=== PATIENT | female | born 1980 | race Caucasian/White ===

== ENCOUNTER → 2018-05-21 14:48 | Outpatient (CLI) | payer BC, SELFPAY ==
[2018-05-21 15:16] LABS: Adenovirus F 40/41, stool Not Detected (NotDetected); Astrovirus Not Detected (NotDetected); Campylobacter Not Detected (NotDetected); Clostridium Difficile A/B, PCR Not Detected (NotDetected); Cryptosporidium Not Detected (NotDetected); Cyclospora Cayetanesis Not Detected (NotDetected); Entamoeba histolytica Not Detected (NotDetected); Enteroaggregative E coli Not Detected (NotDetected); Enteropathogenic E coli Not Detected (NotDetected); Enterotoxigenic E coli Not Detected (NotDetected); Giardia lamblia Not Detected (NotDetected); Norovirus Not Detected (NotDetected); Plesimonas Shigalloides, PCR Not Detected (NotDetected); Rotavirus A Not Detected (NotDetected); Salmonella, PCR Not Detected (NotDetected); Sapovirus Not Detected (NotDetected); Shiga-like toxin E coli Not Detected (NotDetected); Shigella Enterovasive E coli Not Detected (NotDetected); Vibrio Cholerae Not Detected (NotDetected); Vibrio, PCR Not Detected (NotDetected); Yersinia Entercolitica, PCR Not Detected (NotDetected)
== END ==
PROVIDERS: Visit Provider Nurse Practitioner Family
DX: R19.7 Diarrhea, unspecified (principal)
CPT/HCPCS: 87507

== ENCOUNTER → 2019-03-16 16:47 | Outpatient (CLI) | payer BC, SELFPAY ==
--- NOTE | 2019-03-16 16:54 | MM_ITS ---
MM Dig screening mamm BI w/CAD ORDERING PHYSICIAN : Soraya Hyde APRN PATIENT AGE: 38 years GENDER: Female COMPARISON: 03/18/2015 bilateral screening mammogram Only 1 previous mammogram available but very helpful and supportive stability INDICATION: Routine: SCREENING no hormones.Murina . No new complaints. Noncontributory family history. TECHNIQUE: Standard CC and MLO images were obtained. R2 CAD reviewed. Axillary cc views both breast included FINDINGS: Moderate low-density breast bilaterally.. Moderate fibroglandular elements throughout the central breast extending towards upper-outer quadrant Overall stable appearing architecture with no new dominant mass nor suspicious calcifications. No significant new findings. . Bilateral follow-up in one year adequate IMPRESSION: ......... Stable mammogram No new findings of significant concern. Moderate density breast. Bilateral follow-up one year recommended. BI-RADS Category: 1 Negative RECOMMENDED FOLLOW-UP: 1YR 1 YEAR FOLLOW-UP (A letter has been sent to the patient regarding results of the study.)
== END ==
PROVIDERS: PCP Nurse Practitioner Family; Visit Provider Nurse Practitioner Family
DX: Z12.31 Encounter for screening mammogram for malignant neoplasm of breast (principal)
CPT/HCPCS: 77067

== ENCOUNTER → 2019-05-01 10:05 | Outpatient (CLI) | payer BC, SELFPAY ==
[2019-05-03 07:46] LABS: Deamidated Gliadin Abs, IgA 4 units (0-19); Deamidated Gliadin Abs, IgG 3 units (0-19); Endomysial IgA Antibody Negative (Negative); Tissue Transglutaminase IgA Ab <2 U/mL (0-3); Tissue Transglutaminase IgG Ab <2 U/mL (0-5)
[2019-05-03 07:48] LABS: Reticulin IgA Antibody Negative titer (Neg:<1:2.5)
== END ==
PROVIDERS: PCP Nurse Practitioner Family; Visit Provider Internal Medicine Gastroenterology
DX: K59.9 Functional intestinal disorder, unspecified (principal); K30 Functional dyspepsia; R10.13 Epigastric pain
CPT/HCPCS: 36415; 83516; 86255; 86256

== ENCOUNTER → 2019-11-17 09:57 | Outpatient (CLI) | payer BC, SELFPAY ==
--- NOTE | 2019-11-17 10:07 | XR_ITS ---
PROCEDURE: XR CHEST 2V Patient Age:38Y CLINICAL HISTORY: COUGH cough several weeks COMPARISON: CXR CHEST(2 VIEWS-NOT PORTABLE) from 10/26/2016 CXR CHEST(2 VIEWS-NOT PORTABLE) from 03/07/2017 FINDINGS: PA and lateral chest performed. Lungs clear with nothing definitely acute. The cardiomediastinal silhouette satisfactory with heart upper normal in size. Pulmonary vascularity normal. Subtle accentuation of markings infrahilar region lateral view similar to previous studies and reflecting baseline for this patient. The lungs are clear without infiltrates, suspicious nodules, or pleural effusions. No acute bony abnormalities. IMPRESSION: No acute findings. . Stable chest with nothing definitely acute Dictated by: Gareth Back MD 11/17/2019 20:53 Electronically signed by Gareth Back MD in [place] 11/17/2019 20:53
[2019-11-17 10:43] LABS: Basophils # 0.1 K/mm3 (0-0.2); Basophils % 0.7 % (0.1-2.0); Eosinophils # 0.2 K/mm3 (0.0-0.4); Eosinophils % 2.3 % (0.1-12.0); Hematocrit 41.2 % (37.0-47.0); Hemoglobin 13.4 g/dL (12.2-16.2); Lymphocytes % 21.9 % (10-50); Mean Corpuscular HGB Conc 32.5 g/dL (31.8-35.4); Mean Corpuscular Hemoglobin 29.4 pg (27.0-31.2); Mean Corpuscular Volume 90.4 fl (81-99); Monocytes # 0.4 K/mm3 (0.1-1.0); Monocytes % 4.9 % (1.7-9.3); Neutrophils # 6.3 K/mm3 (1.8-7.8); Neutrophils % 70.2 % (37.0-80.0); Platelet Count 357 K/mm3 (142-424); Red Blood Count 4.56 M/mm3 (4.20-5.40); Red Cell Distribution Width 13.9 % (11.5-17.5); White Blood Count 8.9 K/mm3 (4.8-10.8)
[2019-11-17 11:57] LABS: Alanine Aminotransferase 30 U/L (12-78); Albumin Level 3.7 gm/dL (3.4-5.0); Albumin/Globulin Ratio 1.2 (1.1-1.8); Alkaline Phosphatase 65 U/L (46-116); Anion Gap 16.3 mEq/L (5-15); Aspartate Amino Transferase 9 U/L (15-37); Bilirubin,Total 0.3 mg/dL (0.2-1.0); Blood Urea Nitrogen 11 mg/dL (7-18); Calcium 8.6 mg/dL (8.5-10.1); Carbon Dioxide 25 mmol/L (21.0-32.0); Chloride 102 mmol/L (98-107); Chol/HDL Ratio 5.9 (1-3.5); Cholesterol 226 mg/dL (140-200); Creatinine,Serum 0.72 mg/dL (0.55-1.02); Estimated Glomerular Filt Rate 90 ml/min (>60); GFR (African American) 109 ML/MIN (>60); Globulin 3.1 gm/dl (1.3-3.2); Glucose 141 mg/dL (74-106); HDL Cholesterol 38 mg/dL (29-89); LDL Cholesterol 144 mg/dL (0-130); Potassium 4.3 mmoL/L (3.5-5.1); Sodium 139 mmol/L (136-145); Total Protein,Serum 6.8 gm/dL (6.4-8.2); Triglycerides 219 mg/dL (30-200); VLDL Cholesterol 44 mg/dL (0-40)
[2019-11-17 12:42] LABS: Hemoglobin A1C 6.4 % (0.0-7.0)
[2019-11-18 09:45] LABS: Vitamin B12 587 pg/mL (232-1245)
[2019-11-20 16:11] LABS: EBV Ab VCA, IgM <36.0 U/mL (0.0-35.9); EBV Nuclear Antigen Ab, IgG 78.9 U/mL (0.0-17.9); Epstein-Barr Virus Early Ag Ab <9.0 U/mL (0.0-8.9)
== END ==
PROVIDERS: PCP Nurse Practitioner Family; Visit Provider Nurse Practitioner Family
DX: R05 Cough (principal); R53.83 Other fatigue; E11.9 Type 2 diabetes mellitus without complications; E55.9 Vitamin D deficiency, unspecified
CPT/HCPCS: 36415; 71046; 80053; 80061; 82607; 82652; 83036; 84443; 85025; 86663; 86664; 86665

== ENCOUNTER → 2020-01-15 15:11 | Outpatient (CLI) | payer BC, SELFPAY ==
--- NOTE | 2020-01-15 15:14 | CA_ITS ---
APPROVED REPORT EXAM: Comprehensive 2D, Doppler, and color-flow Echocardiogram [employer] Supervisor: Selena Hook RDCS Ht: 5 ft 3 in Wt: 212lbs BSA: 1.98 BP: 110/70 mmHg Indications: MVP,PALPS 2D Dimensions LVOT 1.85 cm (M/F) 1.5-2.5 M-Mode Dimensions RVDd 2.64 cm (0.9-2.6) LVDd 5.36 cm (3.5-5.7) LVDs 3.47 cm (3.5-5.7) IVSd 0.86 cm (0.6-1.1) PWd 0.82 cm (0.6-1.1) EF (Teich) 64.10% FS 35.30% EDV (Teich) 138.90 mL ESV (Teich) 49.80 mL LV Diastology E/A Ratio 1.03 Aortic Valve LVOT Max 141.00 (70-110 cm/s) LVOT VTI 28.02 cm Mitral Valve MV A Velocity 83.00 (40-130 cm/s) Left Ventricle Left atrium is normal size, left ventricle is normal size, there is no concentric left ventricular hypertrophy, visually estimated ejection fraction 55% with no regional wall motion abnormality. Diastolic parameters are within normal range. Right Ventricle Right atrium and right ventricular normal size and contractility. Aortic Valve Aortic valve is grossly normal, there is no aortic stenosis or aortic insufficiency. Mitral Valve Mitral valve is grossly normal, there is trace mitral regurgitation. Tricuspid Valve Tricuspid valve is grossly normal, there is trace tricuspid regurgitation, tricuspid regurgitation jet velocity is inadequate for calculation of the right ventricular systolic pressure. Pulmonic Valve Pulmonic valve is poorly visualized. Great Vessels Aortic root is normal size. Pericardium No significant pericardial effusion noted. Conclusion 1. Normal left ventricular size, preserved left ventricular systolic function, visually estimated ejection fraction 55% with no regional wall motion abnormality, diastolic parameters are within normal range. 2. Trace mitral and tricuspid regurgitation. 3. No obvious echocardiographic evidence of mitral valve prolapse 4. No significant pericardial effusion noted. Electronically signed by : Darren Walker, 01/16/2020 05:56:32
== END ==
PROVIDERS: PCP Nurse Practitioner Family; Visit Provider Nurse Practitioner Family
DX: I34.1 Nonrheumatic mitral (valve) prolapse (principal)
CPT/HCPCS: 93306

== ENCOUNTER → 2020-06-06 11:56 | Outpatient (CLI) | payer BC, SELFPAY ==
--- NOTE | 2020-06-06 12:01 | XR_ITS ---
PROCEDURE: XR CHEST 2V CLINICAL HISTORY: COUGH COMPARISON: CXR CHEST(2 VIEWS-NOT PORTABLE) from 10/26/2016 CXR CHEST(2 VIEWS-NOT PORTABLE) from 03/07/2017 XR CHEST 2V from 11/17/2019 FINDINGS: The cardiomediastinal silhouette and pulmonary vascularity are within normal limits. The lungs are clear without infiltrates, suspicious nodules, or pleural effusions. No acute bony abnormalities. IMPRESSION: No acute findings. Dictated by: Dustin Greenberg MD 06/06/2020 14:11 Electronically signed by Dustin Greenberg MD in [place] 06/06/2020 14:11
[2020-06-06 12:45] LABS: Basophils % 0.3 % (0.1-2.0); Eosinophils # 0.2 K/mm3 (0.0-0.4); Eosinophils % 1.3 % (0.1-12.0); Hematocrit 42.2 % (37.0-47.0); Lymphocytes # 3.3 K/mm3 (0.7-4.5); Lymphocytes % 18.6 % (10-50); Mean Corpuscular HGB Conc 33.3 g/dL (31.8-35.4); Mean Corpuscular Hemoglobin 30.2 pg (27.0-31.2); Mean Corpuscular Volume 90.5 fl (81-99); Mean Platelet Volume 7.5 fl (7.4-10.4); Monocytes # 0.7 K/mm3 (0.1-1.0); Monocytes % 4.2 % (1.7-9.3); Neutrophils # 13.3 K/mm3 (1.8-7.8); Neutrophils % 75.6 % (37.0-80.0); Platelet Count 396 K/mm3 (142-424); Red Blood Count 4.66 M/mm3 (4.20-5.40); Red Cell Distribution Width 14.4 % (11.5-17.5); White Blood Count 17.6 K/mm3 (4.8-10.8)
[2020-06-06 12:48] LABS: MANUAL DIFFERENTIAL MANUAL DIFFERENTIAL (MANUAL DIFF)
[2020-06-06 14:21] LABS: Lymphocytes % 16 % (10-50); Monocytes % 4 % (2-9); Neutrophils % 80 % (42-76); Platelet Estimate Normal; RBC Morphology Normal; Total Cells Counted 100
[2020-06-06 14:46] LABS: Alanine Aminotransferase 37 U/L (12-78); Albumin Level 4.6 g/dl (3.5-5.0); Albumin/Globulin Ratio 1.6 (1.1-1.8); Alkaline Phosphatase 85 U/L (38-126); Anion Gap 17.5 mEq/L (5-15); Aspartate Amino Transferase 24 U/L (14-36); Bilirubin,Total 0.6 mg/dl (0.2-1.3); Blood Urea Nitrogen 13 mg/dl (7-17); Carbon Dioxide 28 mmol/L (22.0-30.0); Chloride 97 mmol/L (98-107); Estimated Glomerular Filt Rate 110 ml/min (>60); GFR (African American) 133 ML/MIN (>60); Globulin 2.9 g/dL (1.3-3.2); Glucose 121 mg/dl (74-100); Potassium 4.5 mmoL/L (3.5-5.1); Sodium 138 mmol/L (136-145); Total Protein,Serum 7.5 g/dl (6.3-8.2)
[2020-06-06 15:16] LABS: Thyroid Stimulating Hormone 2.87 uIU/mL (0.465-4.68)
== END ==
PROVIDERS: PCP Internal Medicine Adolescent Medicine; Visit Provider Internal Medicine Adolescent Medicine
DX: R05 Cough (principal); R53.83 Other fatigue
CPT/HCPCS: 36415; 71046; 80053; 84443; 85007; 85025

== ENCOUNTER → 2020-06-10 13:22 | Outpatient (CLI) | payer BC, SELFPAY ==
--- NOTE | 2020-06-10 13:30 | MM_ITS ---
PROCEDURE: MM DIG SCREENING MAMM BI W/CAD Digital Breast Tomosynthesis Included CLINICAL INDICATION: SCREENING There is no personal or family history of breast cancer COMPARISON: DMSB DIG MAMM-SCREEN THEO from 03/18/2015 DIG MAMM-SCREEN THEO from 03/16/2019 TECHNIQUE: Standard CC and MLO images and 3D Tomosynthesis was obtained. R2 CAD reviewed. FINDINGS: [id number] fibroglandular densities are seen in the central portions of both breasts. The findings are bilateral and symmetrical. There is no suspicious lesion in either breast and no suspicious microcalcifications. IMPRESSION: Fibrofatty parenchyma with no suspicious lesions seen BI-RAD Category: 1 Negative FOLLOW-UP: 1YR 1 Year Follow-up (A letter has been sent to the patient regarding results of the study.) Dictated by: Dr. Silverio Dixon MD 06/12/2020 15:[address] Silverio Dixon MD in [place] 06/12/2020 15:33
== END ==
PROVIDERS: PCP Internal Medicine Adolescent Medicine; Visit Provider Nurse Practitioner Family
DX: Z12.31 Encounter for screening mammogram for malignant neoplasm of breast (principal)
CPT/HCPCS: 77063; 77067

== ENCOUNTER → 2020-07-04 09:14 | Outpatient (CLI) | payer BC, SELFPAY ==
--- NOTE | 2020-07-04 09:20 | CA_ITS ---
APPROVED REPORT EXAM: Comprehensive 2D, Doppler, and color-flow Echocardiogram [employer] Co[employer] Machine Tender: Mera Allan RVT Ht: 5 ft 3 in Wt: 210lbs BSA: 1.97 BP: 125/65 mmHg Indications: SOA,POST COVID,MALAGON,HX MVP 2D Dimensions LVOT 1.95 cm (M/F) 1.5-2.5 M-Mode Dimensions RVDd 2.38 cm (0.9-2.6) LVDd 4.74 cm (3.5-5.7) LVDs 3.13 cm (3.5-5.7) IVSd 0.72 cm (0.6-1.1) PWd 1.08 cm (0.6-1.1) EF (Teich) 62.80% FS 34.00% EDV (Teich) 104.40 mL ESV (Teich) 38.80 mL LV Diastology E/A Ratio 1.16 Mitral Valve MV A Velocity 73.00 (40-130 cm/s) Left Ventricle Left atrium is normal size, left ventricle is normal size, there is no concentric left ventricular hypertrophy, ejection fraction 55% with no regional wall motion abnormality. Right Ventricle Right atrium and right ventricular normal size and contractility. Aortic Valve Aortic valve is grossly normal, there is no aortic stenosis or aortic insufficiency. Mitral Valve Mitral valve is normal, there is no mitral valve prolapse, there is trace mitral regurgitation. Tricuspid Valve Tricuspid valve grossly normal, there is trace tricuspid regurgitation. Pulmonic Valve Pulmonic valve is poorly visualized. Great Vessels Aortic root is normal size. Pericardium No significant pericardial effusion noted. Conclusion 1. Normal left ventricular size, preserved left ventricular systolic function, visually estimated ejection fraction 55% with no regional wall motion abnormality, diastolic parameters are within normal range. 2. Trace mitral and tricuspid regurgitation. 3. No significant pericardial effusion noted. Electronically signed by : Darren Walker, 07/04/2020 14:08:27
== END ==
PROVIDERS: PCP Internal Medicine Adolescent Medicine; Visit Provider Internal Medicine Adolescent Medicine
DX: R06.00 Dyspnea, unspecified (principal); I34.1 Nonrheumatic mitral (valve) prolapse; U07.1 COVID-19
CPT/HCPCS: 93306

== ENCOUNTER 2020-08-17 15:05 | Emergency (ER) | payer BC, SELFPAY ==
[2020-08-17 15:06] VITALS: BP 115/88; PULSE 67; RESP 19; TEMP 37; O2SAT 99; BMI 37.2
[2020-08-17 15:22] VITALS: BMI 37.2
--- NOTE | 2020-08-17 15:24 | XR_ITS ---
PROCEDURE: XR HUMERUS RT CLINICAL INDICATION: fall COMPARISON: No exams were available for comparison FINDINGS: The vertical fracture of the humeral head is again noted. Otherwise the humeral shaft is intact and the supracondylar humerus appears normal. IMPRESSION: Fracture of the humeral head otherwise the humeral shaft is intact Dictated by: Dr. Silverio Dixon MD 08/17/2020 16:20 Dr. Silverio Dixon MD in [place] 08/17/2020 16:20
--- NOTE | 2020-08-17 15:24 | XR_ITS ---
PROCEDURE: XR SHOULDER RT MIN 2V CLINICAL INDICATION: fall While walking COMPARISON: No exams were available for comparison FINDINGS: There is a vertical fracture through the lateral humeral head involving the greater tuberosity without significant displacement. The humeral head remains within the glenoid. The clavicle is intact and the AC joint appears normal. IMPRESSION: Vertical for fracture humeral head Dictated by: Dr. Silverio Dixon MD 08/17/2020 16:19 Dr. Silverio Dixon MD in [place] 08/17/2020 16:19
--- NOTE | 2020-08-17 15:30 | HMH.EDFALL ---
ED Disposition Clinical Impression: Closed fracture of proximal end of humerus Qualifiers: Encounter type: initial encounter Fracture morphology: other fracture Fracture alignment: displaced Laterality: right Qualified Code(s): S42.291A - Other displaced fracture of upper end of right humerus, initial encounter for closed fracture Disposition: Home, Self-Care Condition on Discharge: Fair Prescriptions: Hydrocodone/Acetaminophen [Hydrocodone-Acetamin 5-325 mg] 1 each PO Q6HP PRN #16 tab PRN Reason: pain from fracture Prescription Printed Cyclobenzaprine HCl [Cyclobenzaprine 5mg Tab] 5 mg PO Q8HP PRN #30 tab PRN Reason: pain/spasm Transmission Status: Received by [facility] Ketorolac Tromethamine [Toradol 10mg tablet] 10 mg PO Q6H 5 Days #20 tab Transmission Status: Received by [facility] Referrals: Silas Shaffer MD [Primary Care Provider] - Kevin Linton MD [Staff Physician] - - Critical Care Critical Care Time: No Attestation: On 08/17/20, the high probability of a clinically significant, sudden or life threatening deterioration of the following system(s) required my full and direct attention, intervention and personal management. The time I documented below is in addition to time spent performing reported procedures but includes the following listed in this critical care notation. Medical Decision Making - Medical Records Medical records reviewed: Yes: I reviewed the patient's medical records. - Bernardo Inquiry Pt receiving controlled substance: Yes Bernardo was queried for this patient: Yes Reference #:: [id number] Risks and benefits of using a controlled substance: were discussed with pt by me Vital Signs: 08/17/20 15:06 Temperature 98.6 F Temperature Source Oral Pulse Rate [Left Radial] 67 Respiratory Rate 19 Blood Pressure [Right Arm] 115/88 Blood Pressure Mean [Right Arm] 97 Blood Pressure Source [Right Arm] Automatic Cuff Blood Pressure Position [Right Arm] Sitting 02 Sat by Pulse Oximetry 99 Oxygen Delivery Method Room Air Orders (Tests/Meds): ED MEDICATIONS Discontinued Medications Generic Name Dose Route Start Last Admin Trade Name Freq PRN Reason Stop Dose Admin Ketorolac Tromethamine 60 mg 08/17/20 15:30 Ketorolac 60mg/2ml Vial IM 08/17/20 15:31 ONCE ONE Orphenadrine Citrate 60 mg 08/17/20 15:30 Orphenadrine Citrate 60mg/2ml Vial IM 08/17/20 15:31 ONCE ONE Promethazine HCl 25 mg 08/17/20 15:30 Promethazine Hcl 25mg/Ml 1ml Vial IM 08/17/20 15:31 ONCE ONE Sodium Chloride 25 ml 08/17/20 15:30 Sodium Chloride 0.9% 25ml Bag IV 08/17/20 15:31 ONCE ONE ORDERS Category Date Time Status Humerus XR right [XR humerus RT] Stat Exams 08/17/20 15:24 Taken XR shoulder RT min 2V Stat Exams 08/17/20 15:24 Taken - Radiology Data #1 Image(s): Shoulder Image Reviewed: Yes I reviewed the patient's radiology results proximal R.humerous fx Fall HPI - General Chief Complaint: Fall Stated Complaint: fell 1004 @ 1400 injury R shoulder Time Seen by Provider: 08/17/20 15:25 Mode of Arrival: Ambulatory Source of Information: Patient Limitations: No Limitations Description of Symptoms (Recalled from ER Triage Doc. by RN): c/o right shoulder pain after falling when some cows chased her. Denies any LOC or any other injuries at this time. - History of Present Illness HPI Narrative: This is a 39-year-old female that presents with acute right shoulder pain after sustaining fall. Patient [place] herd of cattle started to run toward her she began to run and had a mechanical fall and fell on the right shoulder. Patient reports sharp constant right shoulder pain to the anterior portion of the shoulder worse with movement. Pain rated at 7 out of 10 in intensity and is constant. No other injuries no other complaints. - Related Data Home Medications Medication Ins
--- NOTE | 2020-08-17 15:39 | PC.NURSE ---
Ortho paged at this time.
--- NOTE | 2020-08-17 15:41 | PC.NURSE ---
Dr Lewis speaking with Dr Linton at this time.
[2020-08-17 16:40] VITALS: BP 142/85; PULSE 80; RESP 17; TEMP 36.8; O2SAT 100
== END 2020-08-17 16:40 | disposition home or self-care (01) ==
PROVIDERS: Emergency Provider Emergency Medicine; PCP Internal Medicine Adolescent Medicine
DX: S42.294A Other nondisplaced fracture of upper end of right humerus, initial encounter for closed fracture (principal); W01.0XXA Fall on same level from slipping, tripping and stumbling without subsequent striking against object, initial encounter; Y92.73 Farm field as the place of occurrence of the external cause; E11.9 Type 2 diabetes mellitus without complications; I34.1 Nonrheumatic mitral (valve) prolapse; F33.1 Major depressive disorder, recurrent, moderate; Z79.899 Other long term (current) drug therapy
CPT/HCPCS: 73030; 73060; 96372; 99283

== ENCOUNTER → 2020-08-18 11:21 | Outpatient (CLI) | payer BC, SELFPAY ==
--- NOTE | 2020-08-18 11:32 | CT_ITS ---
PROCEDURE: CT SHOULDER RT WO CON CLINICAL HISTORY: proximal end of humerus fx Follow-up fracture COMPARISON: CR XR SHOULDER RT MIN 2V from 08/17/2020 TECHNIQUE: Axial images obtained with sagittal and coronal reformats. All CT scans at the facility use one or more dose reduction, viz: automated exposure control, ma/kV adjustment per patient size (including targeted exams where dose is matched to indication, i.e. head), or iterative reconstruction technique. FINDINGS: The AC joint appears intact. There is a comminuted only minimally displaced fracture involving the proximal humerus beginning at the base the greater tuberosity and extending distally and longitudinal E. The fracture does not extend transversely through the humeral neck. There is only minimal dorsal displacement of the fracture fragment by approximately 4 mm. No intra-articular extension. No other significant anomalies. IMPRESSION: Comminuted minimally displaced fracture involves the greater tuberosity of the proximal humerus as described above. Dictated by: Dustin Greenberg MD 08/18/2020 14:15 Dustin Greenberg MD in [place] 08/18/2020 14:15
== END ==
PROVIDERS: PCP Internal Medicine Adolescent Medicine; Visit Provider Orthopaedic Surgery
DX: S42.201A Unspecified fracture of upper end of right humerus, initial encounter for closed fracture (principal)
CPT/HCPCS: 73200

== ENCOUNTER 2020-11-20 15:30 | Outpatient (RCR) | payer BC, SELFPAY | END 2020-12-16 10:28 | disposition home or self-care (01) | LOC: OT 15:30 | PROVIDERS: PCP Internal Medicine Adolescent Medicine; Visit Provider Orthopaedic Surgery | DX: S42.201A Unspecified fracture of upper end of right humerus, initial encounter for closed fracture (principal) | CPT/HCPCS: 97014; 97110; 97164; 97165; 97530; G0283 ==

== ENCOUNTER → 2021-03-30 18:12 | Outpatient (CLI) | payer BC, SELFPAY ==
[2021-03-30 18:48] LABS: Hemoglobin A1C 6.1 % (4.0-6.0)
[2021-03-30 18:54] LABS: Chloride 99 mmol/L (98-107)
[2021-03-30 18:55] LABS: Potassium 4.6 mmoL/L (3.5-5.1); Sodium 138 mmol/L (136-145)
[2021-03-30 18:57] LABS: Alanine Aminotransferase 24 U/L (12-78); Albumin Level 4.9 g/dl (3.5-5.0); Alkaline Phosphatase 75 U/L (38-126); Anion Gap 16.6 mEq/L (5-15); Aspartate Amino Transferase 28 U/L (14-36); Bilirubin,Total 0.6 mg/dl (0.2-1.3); Blood Urea Nitrogen 15 mg/dl (7-17); Carbon Dioxide 27 mmol/L (22.0-30.0); Estimated Glomerular Filt Rate 110 ml/min (>60); GFR (African American) 133 ML/MIN (>60); Globulin 2.4 g/dL (1.3-3.2); Total Protein,Serum 7.3 g/dl (6.3-8.2)
[2021-03-30 18:58] LABS: Calcium 9.8 mg/dl (8.4-10.2); Chol/HDL Ratio 2.7 (1-3.5); Cholesterol 139 mg/dl (140-200); Glucose 110 mg/dl (74-100); HDL Cholesterol 52 mg/dl (40-60); Triglycerides 142 mg/dl (30-150); VLDL Cholesterol 28 mg/dL (0-40)
[2021-03-30 19:09] LABS: Direct LDL Cholesterol 58.02 mg/dL (100-129)
== END ==
PROVIDERS: Visit Provider Internal Medicine Adolescent Medicine
DX: E78.5 Hyperlipidemia, unspecified (principal); E11.9 Type 2 diabetes mellitus without complications; Z79.84 Long term (current) use of oral hypoglycemic drugs
CPT/HCPCS: 80053; 80061; 83036

== ENCOUNTER → 2021-07-01 07:48 | Outpatient (CLI) | payer BC, SELFPAY ==
[2021-07-01 14:04] LABS: Chloride 105 mmol/L (98-107); Sodium 139 mmol/L (136-145)
[2021-07-01 14:05] LABS: Potassium 4.7 mmoL/L (3.5-5.1)
[2021-07-01 14:07] LABS: Alanine Aminotransferase 27 U/L (12-78); Albumin Level 4.5 g/dl (3.5-5.0); Albumin/Globulin Ratio 1.8 (1.1-1.8); Alkaline Phosphatase 66 U/L (38-126); Anion Gap 13.7 mEq/L (5-15); Aspartate Amino Transferase 24 U/L (14-36); Bilirubin,Total 0.4 mg/dl (0.2-1.3); Blood Urea Nitrogen 14 mg/dl (7-17); Carbon Dioxide 25 mmol/L (22.0-30.0); Cholesterol 177 mg/dl (140-200); Estimated Glomerular Filt Rate 110 ml/min (>60); GFR (African American) 133 ML/MIN (>60); Globulin 2.5 g/dL (1.3-3.2); Triglycerides 194 mg/dl (30-150); VLDL Cholesterol 39 mg/dL (0-40)
[2021-07-01 14:08] LABS: Calcium 9.2 mg/dl (8.4-10.2); Chol/HDL Ratio 4.5 (1-3.5); Glucose 116 mg/dl (74-100); HDL Cholesterol 39 mg/dl (40-60); Magnesium 2.2 mg/dl (1.6-2.3)
[2021-07-01 14:20] LABS: Direct LDL Cholesterol 91.12 mg/dL (100-129)
[2021-07-01 14:24] LABS: Triiodothryronine (T3) Uptake 29 % (23.5-40.5)
[2021-07-01 14:25] LABS: Free Thyroxine Index 2.3 ug/dL (5.93-13.13)
[2021-07-01 14:44] LABS: Ferritin 26.7 ng/ml (6.24-137)
[2021-07-01 14:52] LABS: Basophils # 0.1 K/mm3 (0-0.2); Basophils % 1.1 % (0.1-2.0); Eosinophils # 0.2 K/mm3 (0.0-0.4); Eosinophils % 2.2 % (0.1-12.0); Hematocrit 42.3 % (37.0-47.0); Hemoglobin 13.9 g/dL (12.2-16.2); Lymphocytes # 1.7 K/mm3 (0.7-4.5); Lymphocytes % 21.3 % (10-50); Mean Corpuscular Hemoglobin 28.9 pg (27.0-31.2); Mean Corpuscular Volume 87.5 fl (81-99); Mean Platelet Volume 8.6 fl (7.4-10.4); Monocytes # 0.5 K/mm3 (0.1-1.0); Neutrophils # 5.4 K/mm3 (1.8-7.8); Neutrophils % 69.3 % (37.0-80.0); Platelet Count 329 K/mm3 (142-424); Red Blood Count 4.83 M/mm3 (4.20-5.40); Red Cell Distribution Width 14.3 % (11.5-17.5); White Blood Count 7.8 K/mm3 (4.8-10.8)
[2021-07-01 16:13] LABS: Hemoglobin A1C 5.8 % (4.0-6.0)
[2021-07-02 08:52] LABS: FSH 18.6 mIU/mL (.); LH 7.2 mIU/mL (.)
== END ==
PROVIDERS: Visit Provider Internal Medicine Adolescent Medicine
DX: R00.2 Palpitations (principal); D50.0 Iron deficiency anemia secondary to blood loss (chronic); E11.9 Type 2 diabetes mellitus without complications; N95.1 Menopausal and female climacteric states; Z79.84 Long term (current) use of oral hypoglycemic drugs
CPT/HCPCS: 36415; 80053; 80061; 82728; 83001; 83002; 83036; 83735; 84436; 84443; 84479; 85025

== ENCOUNTER → 2021-12-31 10:48 | Outpatient (CLI) | payer BC, SELFPAY ==
--- NOTE | 2021-12-31 10:54 | CT_ITS ---
FINAL REPORT CLINICAL HISTORY: CYSTITIS WITH HEMATURIA, RIGHT FLANK PAIN, HX OF BLADDER/KIDNEY INFECTION FINDINGS: Axial CT images of the abdomen and pelvis were obtained without intravenous contrast. Coronal reformatted images were also obtained.This study was performed with techniques to keep radiation doses as low as reasonably achievable (ALARA). Individualized dose reduction techniques using automated exposure control or adjustment of mA and/or kV according to the patient's size were employed. Abdomen: The lung bases are clear. There is no evidence of renal stone or hydronephrosis.The liver, spleen and pancreas have an unremarkable, unenhanced appearance. No mass or adenopathy is seen. No inflammatory process is identified. Pelvis: Images of the pelvis reveal no evidence of ureteral dilation or ureteral stone.No mass or abnormal fluid collection is identified. There is an IUD in the uterus. The appendix is normal. IMPRESSION: No renal or ureteral stone, or hydronephrosis. No mass or inflammatory process. Reviewed, Interpreted and Dictated by Alcides Montanez III, MD Transcribed by Rafaela Higginbotham Authenticated by Alcides Montanez III, MD on 12/31/2021 12:52:15 PM [facility]
== END ==
PROVIDERS: PCP Internal Medicine Adolescent Medicine; Visit Provider Internal Medicine Adolescent Medicine
DX: N30.91 Cystitis, unspecified with hematuria (principal); R31.9 Hematuria, unspecified
CPT/HCPCS: 74176

== ENCOUNTER → 2023-02-18 09:49 | Outpatient (CLI) | payer BC, SELFPAY ==
--- NOTE | 2023-02-18 09:49 | MM_ITS ---
PROCEDURE INFORMATION: Exam: MG Bilateral Screening 3D Mammography Exam date and time: 02/18/2023 9:44 AM Age: 42 years old Clinical indication: Screening. No family history of breast cancer. TECHNIQUE: Imaging protocol: Bilateral Screening tomosynthesis and 2D mammography including computer-aided detection (CAD) when performed. COMPARISON: 1. MG MM DIG SCREENING MAMM BI W/CAD 06/10/2020 1:32 PM 2. MG DIG MAMM-SCREEN THEO 03/16/2019 5:02 PM 3. MG DMSB DIG MAMM-SCREEN THEO 03/18/2015 10:31 AM FINDINGS: MAMMOGRAPHY: Breast composition: There are scattered areas of fibroglandular density. Mass: None. Architectural distortion: None. Calcifications: No suspicious calcifications. Asymmetric density: None. Skin thickening: None. Axillary adenopathy: None. IMPRESSION: No mammographic evidence of malignancy. Annual screening is recommended unless otherwise clinically indicated. ASSESSMENT: BI-RADS Category 1: Negative
== END ==
PROVIDERS: PCP Family Medicine; Visit Provider Obstetrics & Gynecology
DX: Z12.31 Encounter for screening mammogram for malignant neoplasm of breast (principal)
CPT/HCPCS: 77063; 77067

== ENCOUNTER → 2023-06-14 16:48 | Outpatient (CLI) | payer BC, SELFPAY ==
[2023-06-14 16:47] LABS: Basophils % 0.5 % (0.1-2.0); Eosinophils # 0.2 K/mm3 (0.0-0.4); Eosinophils % 2.2 % (0.1-12.0); Hematocrit 43.3 % (37.0-47.0); Hemoglobin 13.7 g/dL (12.2-16.2); Lymphocytes # 1.6 K/mm3 (0.7-4.5); Lymphocytes % 19.3 % (10-50); Mean Corpuscular HGB Conc 31.6 g/dL (31.8-35.4); Mean Corpuscular Hemoglobin 28.8 pg (27.0-31.2); Mean Corpuscular Volume 91.4 fl (81-99); Mean Platelet Volume 8.9 fl (7.4-10.4); Monocytes # 0.4 K/mm3 (0.1-1.0); Monocytes % 4.9 % (1.7-9.3); Neutrophils # 5.9 K/mm3 (1.8-7.8); Neutrophils % 73.1 % (37.0-80.0); Platelet Count 347 K/mm3 (142-424); Red Blood Count 4.74 M/mm3 (4.20-5.40); Red Cell Distribution Width 13.9 % (11.5-17.5); White Blood Count 8.1 K/mm3 (4.8-10.8)
[2023-06-14 16:52] LABS: Alanine Aminotransferase 50 U/L (12-78); Albumin Level 4.9 g/dl (3.5-5.0); Albumin/Globulin Ratio 1.9 (1.1-1.8); Alkaline Phosphatase 75 U/L (38-126); Anion Gap 14.9 mEq/L (5-15); Aspartate Amino Transferase 40 U/L (14-36); Bilirubin,Total 0.7 mg/dl (0.2-1.3); Blood Urea Nitrogen 9 mg/dl (7-17); Carbon Dioxide 27 mmol/L (22.0-30.0); Chloride 101 mmol/L (98-107); Chol/HDL Ratio 2.8 (1-3.5); Cholesterol 108 mg/dl (140-200); Estimated Glomerular Filt Rate 109 ml/min (>60); GFR (African American) 131 ML/MIN (>60); Globulin 2.6 g/dL (1.3-3.2); Glucose 161 mg/dl (74-100); HDL Cholesterol 39 mg/dl (40-60); Potassium 4.9 mmoL/L (3.5-5.1); Sodium 138 mmol/L (136-145); Total Protein,Serum 7.5 g/dl (6.3-8.2); Triglycerides 165 mg/dl (30-150); VLDL Cholesterol 33 mg/dL (0-40)
[2023-06-14 17:04] LABS: Direct LDL Cholesterol 42.41 mg/dL (100-129)
[2023-06-14 17:22] LABS: Thyroid Stimulating Hormone 1.79 uIU/mL (0.465-4.68)
[2023-06-14 18:18] LABS: Hemoglobin A1C 7.2 % (4.0-6.0)
[2023-06-14 18:43] LABS: Creatinine,Urine Random 80 mg/dL (Not Estab.)
[2023-06-14 19:30] LABS: Microalbumin < 6.000 mg/L (0-16.7)
[2023-06-16 10:54] LABS: LH 1.7 mIU/mL (.)
[2023-06-21 22:30] LABS: Estrogen 217 pg/mL (.)
== END ==
PROVIDERS: PCP Family Medicine; Visit Provider Nurse Practitioner Family
DX: E11.69 Type 2 diabetes mellitus with other specified complication (principal); E78.5 Hyperlipidemia, unspecified; N93.8 Other specified abnormal uterine and vaginal bleeding; Z79.84 Long term (current) use of oral hypoglycemic drugs; Z79.899 Other long term (current) drug therapy
CPT/HCPCS: 80053; 80061; 82043; 82570; 82672; 83001; 83002; 83036; 84443; 85025

== ENCOUNTER → 2023-08-19 08:29 | Outpatient (CLI) | payer BC, SELFPAY | PROVIDERS: PCP Nurse Practitioner Family; Visit Provider Nurse Practitioner Family | DX: R30.0 Dysuria (principal) | CPT/HCPCS: 87086 ==

== ENCOUNTER → 2023-09-23 09:32 | Outpatient (CLI) | payer BC, SELFPAY | PROVIDERS: PCP Nurse Practitioner Family; Visit Provider Nurse Practitioner Family | DX: J02.9 Acute pharyngitis, unspecified (principal); Z87.891 Personal history of nicotine dependence | CPT/HCPCS: 87070 ==

== ENCOUNTER → 2023-10-04 08:19 | Outpatient (CLI) | payer BC, SELFPAY ==
[2023-10-04 16:54] LABS: Basophils # 0.1 K/mm3 (0-0.2); Basophils % 0.6 % (0.1-2.0); Eosinophils # 0.2 K/mm3 (0.0-0.4); Eosinophils % 1.4 % (0.1-12.0); Hematocrit 40.3 % (37.0-47.0); Hemoglobin 13.3 g/dL (12.2-16.2); Lymphocytes # 2.6 K/mm3 (0.7-4.5); Mean Corpuscular HGB Conc 32.9 g/dL (31.8-35.4); Mean Corpuscular Hemoglobin 30.9 pg (27.0-31.2); Monocytes # 0.6 K/mm3 (0.1-1.0); Monocytes % 4.6 % (1.7-9.3); Neutrophils # 9.1 K/mm3 (1.8-7.8); Neutrophils % 72.4 % (37.0-80.0); Platelet Count 345 K/mm3 (142-424); Red Blood Count 4.29 M/mm3 (4.20-5.40); White Blood Count 12.6 K/mm3 (4.8-10.8)
[2023-10-04 18:08] LABS: Hemoglobin A1C 6.9 % (4.0-6.0)
[2023-10-04 18:19] LABS: Alanine Aminotransferase 46 U/L (12-78); Aspartate Amino Transferase 30 U/L (14-36); Blood Urea Nitrogen 11 mg/dl (7-17); Calcium 8.9 mg/dl (8.4-10.2); Carbon Dioxide 24 mmol/L (22.0-30.0); Chloride 98 mmol/L (98-107); Estimated Glomerular Filt Rate 109 ml/min (>60); GFR (African American) 131 ML/MIN (>60); Glucose 125 mg/dl (74-100)
[2023-10-04 18:20] LABS: Albumin Level 4.4 g/dl (3.5-5.0); Albumin/Globulin Ratio 1.7 (1.1-1.8); Alkaline Phosphatase 81 U/L (38-126); Anion Gap 16.5 mEq/L (5-15); Bilirubin,Total 0.5 mg/dl (0.2-1.3); Globulin 2.6 g/dL (1.3-3.2); Potassium 4.5 mmoL/L (3.5-5.1); Sodium 134 mmol/L (136-145)
== END ==
LOC: LAB.DROPOF 10-05 08:19
PROVIDERS: PCP Family Medicine; Visit Provider Nurse Practitioner Family
DX: E78.5 Hyperlipidemia, unspecified (principal); E11.9 Type 2 diabetes mellitus without complications; Z79.84 Long term (current) use of oral hypoglycemic drugs
CPT/HCPCS: 80053; 83036; 85025

== ENCOUNTER 2024-01-27 16:43 | Outpatient (CLI) | payer BC, SELFPAY ==
[2024-01-27 16:58] LABS: Hemoglobin A1C 7.5 % (4.0-6.0)
[2024-01-27 17:30] LABS: Chol/HDL Ratio 3.1 (1-3.5); Cholesterol 109 mg/dl (140-200); HDL Cholesterol 35 mg/dl (40-60); Triglycerides 148 mg/dl (30-150); VLDL Cholesterol 30 mg/dL (0-40)
[2024-01-27 17:42] LABS: Direct LDL Cholesterol 51.45 mg/dL (100-129)
== END 2024-01-27 23:59 ==
LOC: LAB.DROPOF 16:44
PROVIDERS: PCP Nurse Practitioner Family; Visit Provider Nurse Practitioner Family
DX: E11.69 Type 2 diabetes mellitus with other specified complication (principal); E78.5 Hyperlipidemia, unspecified; Z79.84 Long term (current) use of oral hypoglycemic drugs
CPT/HCPCS: 80061; 83036

== ENCOUNTER 2024-01-30 19:19 | Outpatient (CLI) | payer BC, SELFPAY ==
[2024-01-30 16:52] LABS: Basophils # 0.1 K/mm3 (0-0.2); Basophils % 1.2 % (0.1-2.0); Eosinophils # 0.2 K/mm3 (0.0-0.4); Hematocrit 43.6 % (37.0-47.0); Hemoglobin 13.9 g/dL (12.2-16.2); Lymphocytes # 2.4 K/mm3 (0.7-4.5); Lymphocytes % 22.8 % (10-50); Mean Corpuscular HGB Conc 31.9 g/dL (31.8-35.4); Mean Corpuscular Hemoglobin 29.8 pg (27.0-31.2); Mean Corpuscular Volume 93.4 fl (81-99); Mean Platelet Volume 8.2 fl (7.4-10.4); Monocytes # 0.6 K/mm3 (0.1-1.0); Monocytes % 5.3 % (1.7-9.3); Neutrophils # 7.2 K/mm3 (1.8-7.8); Neutrophils % 68.7 % (37.0-80.0); Platelet Count 370 K/mm3 (142-424); Red Blood Count 4.67 M/mm3 (4.20-5.40); Red Cell Distribution Width 13.7 % (11.5-17.5); White Blood Count 10.5 K/mm3 (4.8-10.8)
[2024-01-30 17:19] LABS: Amylase 60 U/L (30-110); Lipase 106 U/L (23-300)
[2024-01-30 17:27] LABS: C-Reactive Protein 1.5 mg/L (0-4)
[2024-01-30 18:29] LABS: Erythrocyte Sedimentation Rate 15 mm/hr (0-20)
== END 2024-01-30 23:59 ==
LOC: LAB.DROPOF 19:20
PROVIDERS: PCP Nurse Practitioner Family; Visit Provider Nurse Practitioner Family
DX: R10.11 Right upper quadrant pain (principal); R39.9 Unspecified symptoms and signs involving the genitourinary system; R07.81 Pleurodynia
CPT/HCPCS: 82150; 83690; 85025; 85651; 86140; 87086

== ENCOUNTER 2024-02-07 09:17 | Outpatient (CLI) | payer BC, SELFPAY ==
--- NOTE | 2024-02-07 09:19 | US_ITS ---
FINAL REPORT TECHNIQUE: Ultrasound images of the abdomen were obtained. CLINICAL HISTORY: RUQ pain FINDINGS: The pancreas is obscured by bowel gas. There is infiltration of the liver present. The gallbladder is small, and contains a trace amount of sludge. The common duct is normal. The right kidney measures 11.8 cm in length and is normal in echogenicity without hydronephrosis. The left kidney measures 10 cm in length and is normal in echogenicity without hydronephrosis. The spleen is unremarkable. The aorta is normal in caliber. The vena cava is unremarkable. IMPRESSION: Fatty infiltration of the liver. Trace sludge is present in the gallbladder. Reviewed, Interpreted and Dictated by Calvin Calvin MD Transcribed by Ling Gallagher Authenticated and [facility]
== END 2024-02-07 23:59 ==
LOC: RAD 09:19
PROVIDERS: PCP Family Medicine; Visit Provider Nurse Practitioner Family
DX: R10.11 Right upper quadrant pain (principal)
CPT/HCPCS: 76700

== ENCOUNTER 2024-02-22 15:11 | Outpatient (CLI) | payer BC, SELFPAY ==
--- NOTE | 2024-02-22 15:11 | MM_ITS ---
PROCEDURE INFORMATION: Exam: MG Bilateral Screening 3D Mammography Exam date and time: 02/22/2024 3:14 PM Age: 43 years old Clinical indication: Screening mammogram TECHNIQUE: Imaging protocol: Bilateral Screening tomosynthesis and 2D mammography including computer-aided detection (CAD) when performed. COMPARISON: 1. MG MM DIG SCREENING MAMM BI W/CAD 02/18/2023 9:44 AM 2. MG MM DIG SCREENING MAMM BI W/CAD 06/10/2020 1:32 PM 3. MG DIG MAMM-SCREEN THEO 03/16/2019 5:02 PM 4. MG DMSB DIG MAMM-SCREEN THEO 03/18/2015 10:31 AM FINDINGS: MAMMOGRAPHY: Breast composition: There are scattered areas of fibroglandular density. Mass: None. Architectural distortion: No new or suspicious architectural distortion. Calcifications: No new or suspicious calcifications are present Asymmetric density: No new or suspicious asymmetric density is present Skin thickening: None. Axillary adenopathy: None. IMPRESSION: No mammographic evidence of malignancy. Recommend annual screening mammography unless otherwise clinically indicated. ASSESSMENT: BI-RADS category 1: Negative.
== END 2024-02-22 23:59 ==
LOC: RAD 15:11
PROVIDERS: PCP Family Medicine; Visit Provider Nurse Practitioner Family
DX: Z12.31 Encounter for screening mammogram for malignant neoplasm of breast (principal)
CPT/HCPCS: 77063; 77067

== ENCOUNTER 2024-10-05 09:39 | Outpatient (CLI) | payer BC, SELFPAY | END 2024-10-05 23:59 | disposition home or self-care (01) | LOC: LAB.DROPOF 10-08 09:40 | PROVIDERS: PCP Family Medicine; Visit Provider Family Medicine | DX: N39.0 Urinary tract infection, site not specified (principal) | CPT/HCPCS: 87086 ==

== ENCOUNTER 2024-10-25 08:55 | Outpatient (CLI) | payer BC, SELFPAY | END 2024-10-25 23:59 | disposition home or self-care (01) | LOC: LAB.DROPOF 10-26 15:10 | PROVIDERS: PCP Family Medicine; Visit Provider Family Medicine | DX: N39.0 Urinary tract infection, site not specified (principal) | CPT/HCPCS: 87086 ==

== ENCOUNTER 2024-11-05 09:57 | Outpatient (CLI) | payer BC, SELFPAY | END 2024-11-05 23:59 | disposition home or self-care (01) | LOC: LAB.DROPOF 11-06 09:57 | PROVIDERS: PCP Nurse Practitioner Family; Visit Provider Nurse Practitioner Family | DX: R32 Unspecified urinary incontinence (principal) | CPT/HCPCS: 87086 ==

== ENCOUNTER 2025-01-22 09:31 | Outpatient (CLI) | payer BC, SELFPAY ==
[2025-01-22 18:00] LABS: Basophils # 0.1 K/mm3 (0-0.2); Basophils % 0.7 % (0.1-2.0); Eosinophils # 0.1 K/mm3 (0.0-0.4); Hematocrit 42.6 % (37.0-47.0); Hemoglobin 13.8 g/dL (12.2-16.2); Lymphocytes # 1.5 K/mm3 (0.7-4.5); Mean Corpuscular HGB Conc 32.4 g/dL (31.8-35.4); Mean Corpuscular Hemoglobin 30.1 pg (27.0-31.2); Mean Platelet Volume 10.5 fl (7.4-10.4); Monocytes # 0.5 K/mm3 (0.1-1.0); Neutrophils # 4.8 K/mm3 (1.8-7.8); Neutrophils % 69.2 % (37.0-80.0); Platelet Count 323 K/mm3 (142-424); Red Blood Count 4.58 M/mm3 (4.20-5.40); Red Cell Distribution Width 13.9 % (11.5-17.5); White Blood Count 6.9 K/mm3 (4.8-10.8)
[2025-01-22 21:14] LABS: Albumin Level 4.9 g/dl (3.5-5.0); Chloride 99 mmol/L (98-107); Potassium 4.6 mmoL/L (3.5-5.1); Sodium 134 mmol/L (136-145)
[2025-01-22 21:16] LABS: Alanine Aminotransferase 38 U/L (12-78); Blood Urea Nitrogen 9 mg/dl (7-17); Estimated Glomerular Filt Rate 133 ml/min (>60); GFR (African American) 161 ML/MIN (>60)
[2025-01-22 21:17] LABS: Albumin/Globulin Ratio 2.1 (1.1-1.8); Alkaline Phosphatase 50 U/L (38-126); Anion Gap 13.6 mEq/L (5-15); Aspartate Amino Transferase 34 U/L (14-36); Bilirubin,Total 0.7 mg/dl (0.2-1.3); Calcium 9.5 mg/dl (8.4-10.2); Carbon Dioxide 26 mmol/L (22.0-30.0); Chol/HDL Ratio 2.8 (1-3.5); Cholesterol 119 mg/dl (140-200); Globulin 2.3 g/dL (1.3-3.2); Glucose 121 mg/dl (74-100); HDL Cholesterol 43 mg/dl (40-60); Total Protein,Serum 7.2 g/dl (6.3-8.2); Triglycerides 175 mg/dl (30-150); VLDL Cholesterol 35 mg/dL (0-40)
[2025-01-22 21:29] LABS: Direct LDL Cholesterol 42.74 mg/dL (100-129)
[2025-01-22 21:58] LABS: HIV Combo NEGATIVE (Negative)
[2025-01-22 22:09] LABS: Hepatitis C Ab Qual. W/ RFX NEGATIVE (Negative)
== END 2025-01-22 23:59 | disposition home or self-care (01) ==
LOC: LAB.DROPOF 01-24 09:11
PROVIDERS: PCP Family Medicine; Visit Provider Family Medicine
DX: Z11.59 Encounter for screening for other viral diseases (principal); E11.69 Type 2 diabetes mellitus with other specified complication; E78.5 Hyperlipidemia, unspecified; Z79.84 Long term (current) use of oral hypoglycemic drugs
CPT/HCPCS: 80053; 80061; 85025; 86803; 87389

== ENCOUNTER 2025-03-01 14:06 | Outpatient (CLI) | payer BC, SELFPAY ==
--- NOTE | 2025-03-01 14:00 | MM_ITS ---
PROCEDURE INFORMATION: Exam: MG Bilateral Screening 3D Mammography Exam date and time: 03/01/2025 2:15 PM Age: 44 years old Clinical indication: Screening. No family history of breast cancer. TECHNIQUE: Imaging protocol: Bilateral Screening tomosynthesis and 2D mammography including computer-aided detection (CAD) when performed. COMPARISON: 1. MG MM DIG SCREENING MAMM BI W/CAD 02/22/2024 3:14 PM 2. MG MM DIG SCREENING MAMM BI W/CAD 02/18/2023 9:44 AM 3. MG MM DIG SCREENING MAMM BI W/CAD 06/10/2020 1:32 PM 4. MG DIG MAMM-SCREEN THEO 03/16/2019 5:02 PM FINDINGS: MAMMOGRAPHY: Breast composition: There are scattered areas of fibroglandular density. Mass: None. Architectural distortion: None. Calcifications: No suspicious calcifications. Asymmetric density: None. Skin thickening: None. Axillary adenopathy: None. IMPRESSION: No mammographic evidence of malignancy. Annual screening is recommended unless otherwise clinically indicated. ASSESSMENT: BI-RADS Category 1: Negative.
--- OUTSIDE RECORDS SUMMARY | 2025-03-01 14:08 | XMS_ITS | Data Portability ---
Author Organization [facility] [place] [facility] Address [address] [facility] [place] [address] Assessment No assessment recorded. Plan of Treatment Reminders Order Date Submit Date Provider Last Modified By Organization Details Last Modified Time Details Appointments [facility] 2024 10:00A M HALEIGH FIGUEROA MD Not available Not available Not available Lab surgical pathology study 2024 025 [facility], [address] [place] [address], [phone], 12/28/2024 11:11:58 Referral None recorded. Procedures None recorded. Surgeries None recorded. Imaging None recorded. Medication Orders metronida zole 0.75 % topical cream 2024 025 [facility], [address] [place], [address], 01/03/2025 15:16:03 Patient TargetsNo targets recorded. Patient InstructionsNo instructions recorded. Reason for Referral None Reported. 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 AJCC: T1, Nx, Mx SOURC E OF SPECI MEN: SKIN, MID APEX SCALP CLINI ROCIO INFOR MATIO N: R/O: BCC Gross Descr iptio n: The speci men consi sted of a singl e escamilla fragm ent which measu red 5 x 5 x 1 mm. All is submi tted in toto in one casse tte. Micro scopi c Descr iptio n: Nests and aggre marquez of immat ure basal oid epith elial cells with perip heral palis ading are prese nt in the dermi s. JEET GUERRA MD Daisy d Out Date: 12/28 11:11 1 Not Available [facility] [address] [place], [address], 12/28/2024 11:11:58 Result Notes None recorded. Procedures Surgical History Date Name Laterality Status Provider Name and Address Organization Details Recorded Time 12/27/2024 Blade Biopsy completed [facility] 12/27/2024 09:06:06 Imaging Results None recorded. Procedure Notes None recorded. Medical Equipment None Reported. Allergies Allergen ID Allergen Name Allergen Category Reaction Reaction Severity Criticality Documentation Date Start Date Code Code System Note Provider Name and Address Organization Details Recorded Time 376122 epinephri ne medicatio n respirato ry distress Not available Not available 10/08/20162011 3992 RxNorm React ion: SHORT NESS OF BREAT H; Comme nt: Creat ed By: Franklin go; Creat ed Date: 10:31 :30 AM; Not Available [facility] 6 03:50:44 355109 Tylenol medicatio n other Not available Not available 10/08/2016201143 3 RxNorm React ion: OTHER ; Comme nt: raise s liver enzym es;Cr eated By: Franklin go; Creat ed Date: 10:31 :56 AM; Not Available [facility] 6 03:50:44 Medications Name Sig Start Date Stop Date Status Note LastModified by Organization Details LastModified Time silver sulfadiazi ne 1 % topical cream active Not Available Not Available Not Available citalopram 40 mg tablet active Not Available Not Available Not Available prednisone 20 mg tablet active Not Available Not Available Not Available sulfametho xazole 800 mg-trimeth oprim 160 mg tablet active Not Available Not Available No t Available methenamin e hippurate 1 gram tablet active Not Available Not Available Not Available amoxicilli n 875 mg tablet active Not Available Not Available Not Available prednisone 50 mg tablet active Not Available Not Available Not Available metronidaz ole 0.75 % topical cream APPLY A THIN LAYER TO THE AFFECTED AREA(S) BY TOPICAL ROUTE 2 TIMES PER DAY IN THE MORNING AND EVENING active Not Available Not Available No t Available ipratropiu m bromide 42 mcg (0.06 %) nasal spray active Not Available Not Available Not Available bromphenir amine-pseu doephedrin e-DM 2 mg-30 mg-10 mg/5 mL oral syrup active Not Available Not Available Not Available metformin ER 500 mg tablet,ext ended release 24 hr active Not Available Not Available Not Available amoxicilli n 875 mg-potassi um clavulanat e 125 mg tablet active Not Available Not Available Not Available Cryselle (28) 0.3 mg-30 mcg tablet Daily active Frequency : daily;Alt Frequency : as direct.;M edication Descripti on: ethinyl estradiol -norgestr el; Dosage:1; Route:ora l; refills:0 ; Quantity: 30 tablet Not Available Not Available Not Available rosuvastat in 20 mg tablet active Not Available Not Available Not Available nitrofuran toin monohydrat e/macrocry stals 100 mg capsule active Not Available Not Available N ot Available Fish Oil Daily active Frequency : daily;Alt Frequency : as direct.;M edication Descripti on: omega-3 polyunsat urated fatty acids; Dosage:1; Route:ora l; refills:0 ; Quantity: 30 capsule Not Available Not Available Not Available ferrous sulfate Daily active Frequency : daily;Alt Frequency : as direct.;M edication Descripti on: ferrous sulfate; Dosage:2; refills:0 ; Quantity: 90 Not Available Not Available Not Available Bystolic 2.5 mg tablet Daily active Frequency : daily;Alt Frequency : as direct.;M edication Descripti on: nebivolol ; Dosage:1/ 2; Route:ora l; refills:0 ; Quantity: 30 tablet Not Available Not Available Not Available nebivolol 5 mg tablet active Not Available Not Available Not Available azelastine 137 mcg-flutic asone 50 mcg/spray nasal spray active Not Available Not Available Not Available Farxiga 5 mg tablet active Not Available Not Available No t Available Jardiance 10 mg tablet active Not Available Not Available Not Available Vitals None Recorded Social History Question Answer Notes LastModified by Organizat ion Details LastModified Time Tobacco Smoking Status Never Smoker [facility] 12/27/2024 08:40:51 What Is Your Level Of Alcohol Consumption? Occasional [email or web address] Information not available 12/27/2024 Sunscreen Use? Yes [email or web address] Informat ion not available 12/27/2024 Tanning Bed Use No [email or web address] Informa tion not available 12/27/2024 Are You Or Trying To Become ? No [email or web address] Information not available 12/27/2024 Are You On Control? Yes [email or web address] Information not available 12/27/2024 Are You ? No [email or web address] Information not available 12/27/2024 What Was The Date Of Your Most Recent Tobacco Screening? 12/27/2024 [email or web address] Information not available 12/27/2024 Sex: Unknown Functional Status None recorded. Mental Status None recorded. Family History Nothing Reported. Medical History No medical history recorded. Gynecological HistoryNo gynecological history recorded. Obstetrics History GPAL:G 0 P 0 0 0 0 Past Encounters Encounter ID Performer Location Encounter Start Date Encounter Closed Date Diagnosis/Indication Diagnosis SNOMED-CT Code Diagnosis ICD10 Code Diagnosis Note [id number] ROJELIO FINLEY [address] [place] [address] 12/27/2024 08:31:25 12/27/2024 09:33:01 Multiple benign melanocytic nevi 437326227 D22.5 L81.4 D18.01 L82.1 The benign nature of keratoses and lentigines was discussed with the patient. Sun protection with SPF 30 broad spectrum sunscreen and protective gear discussed. Look for physical micah sunscreens with at least SPF 30 containing zinc oxide or titanium dioxide as active ingredient . Recommend monthly self examinatio ns and yearly full skin examinatio n with a dermatolog y provider. Recommend yearly eye exam. Recommend OTC Vitamin D supplement . Patient instructed to call if any suspicious lesions are noted. Neoplasm o f uncertain behavior of skin [id number] D48.5 The etiology of lesion(s) discussed. Biopsy recommende d. Will call pt with results or post to portal if benign. Rosacea [id number] L71.8 The nature of the diagnosis was discussed. Non-stable chronic.Rx prescribed for Rx metronidaz ole 0.75% topical cream BID. SE reviewed.R ec IPL laser. Health Concerns Section Related Observation LastModified by Organization Detai ls LastModified Time None Recorded Concern Status LastModified by Organization Details LastModified Time None Recorded Advance Directives Directive None Recorded Payers Encounter Date Sequence Insurance Name Policy Number Policy Clark Covered Member ID Clark Member ID Guarantor Name 12/27/2024 1 [place] [employer] [id number] Vane Hayes [id number] Vane Hayes Notes Date Note Type Note Provider Name and Address Organization Details Recorded Time 12/27/2024 text/html Fbse last seen: 2022 hx: none areas of concern: scalp, face. ROJELIO FINLEY [address] [place], [address], [facility] 12/27/2024 12:36:43 OBGyn Episode No OBEpisode recorded.
--- OUTSIDE RECORDS SUMMARY | 2025-03-01 14:09 | XMS_ITS | Data Portability ---
Author Organization [facility] - [place] & JANAK Lemus ADMIN Address [address] [place] [id number] Care Team Providers Care Strapper Name Role Phone CHARLENE RAMIREZ Primary Care Provider Assessment Encounter Date Assessment Date Assessment LastModified by Organization Details LastModified Time 04/26/2023 04/26/2023 The patient is clinically stable on methenamine b.i.d. with negative UA. She will continue to focus attention on diabetes control and constipation control. Both of these are likely causative factors in the recurrent UTI scenario. Will also keep in mind that the patient may have some anatomic issues with the right side of her upper urinary tract that may need further study such as a CT urogram. Will decrease methenamine to 500 mg q.h.s. but she may restart at b.i.d. if she feels necessary. She will return to clinic in 4 months with UA and exam and edema time she is experiencing acute signs or symptoms of UTI. [email or web address] Not available 04/26/2023 09:42:46 Plan of Treatment Reminders Order Date Submit Date Provider Last Modified By Organization Details Last Modified Time Details Appointments None recorded. Lab urinalysis, dipstick 2022 023 [email or web address] [facility], [facility] [address], [place], [address], 10:27:21 urinalysis, dipstick 2022 023 [email or web address] [facility], [facility], [facility] [place], [address], 3 09:30:09 Referral None recorded. Procedures None recorded. Surgeries None recorded. Imaging US, renal - danitza at [facility] on march 02, 2023 @ 8am pt notified of mercy date and time. 2022 023 TAMMY Corey [facility] (Central Scheduling), [address], [place], [address], 3 08:19:03 XR, kidney + ureter + bladder 2022 023 TAMMY Not available 08:19:03 Medication Orders methenamine hippurate 1 gram tablet 2022 023 TAMMY [facility], [address] [place], [address], 09:05:13 Patient TargetsNo targets recorded. Patient InstructionsNo instructions recorded. Reason for Referral None Reported. Results Created Date Observation Date Name Description Value Unit Range Abnormal Flag Note LastModifiedBy Organization Detail LastModifiedTime 02/11/2002/10/2023 urina lysis , dipst ick Leukocytes Negati ve Not Available [facility], [address], 02/10/2023 08:42:56 02/11/20 23 02/10/2023 urina lysis , dipst ick Nitrite negati ve Not Available [facility], [address], 02/10/2023 08:42:56 02/11/20 23 02/10/2023 urina lysis , dipst ick Urobilinogen .[address] Not [address] [facility], [address], 02/10/2023 08:42:56 02/11/20 23 02/10/2023 urina lysis , dipst ick Protein Negati ve Not Available [facility] [address] [place], [address], 02/10/2023 08:42:56 02/11/2002/10/2023 urina lysis , dipst ick pH 6.0 Not Available [facility] [address] [place], [address], 02/10/2023 08:42:56 02/11/2002/10/2023 urina lysis , dipst ick Blood Negati ve Not Available [facility] [address] [place], [address], 02/10/2023 08:42:56 02/11/2002/10/2023 urina lysis , dipst ick Specific [place] 1.020 Not Available [facility] [address] [place], [address], 02/10/2023 08:42:56 02/11/20 23 02/10/2023 urina lysis , dipst ick Ketone Negati ve Not Available [facility] [address] [place], [address], 02/10/2023 08:42:56 02/11/20 23 02/10/2023 urina lysis , dipst ick Bilirubin Negati ve Not Available [facility] [address] [place], [address], 02/10/2023 08:42:56 02/11/20 23 02/10/2023 urina lysis , dipst ick Glucose 100 Not Available [facility] [address] [place], [place], [address], 02/10/2023 08:42:56 02/11/2002/10/2023 urina lysis , dipst ick Appearance Clear Not Available [facility] [place], [address], 02/10/2023 08:42:56 02/11/2002/10/2023 urina lysis , dipst ick Color Pale Yellow Not Available [facility] [place], [place], [address], 02/10/2023 08:42:56 04/26/2004/26/2023 urina lysis , dipst ick Leukocytes Negati ve Not Available [facility] [place], [address], 04/26/2023 06:53:57 04/26/20 23 04/26/2023 urina lysis , dipst ick Nitrite negati ve Not Available [facility] [place], [address], 04/26/2023 06:53:57 04/26/2004/26/2023 urina lysis , dipst ick Urobilinogen .[address] Not [address] [facility] [address] [place], [address], 04/26/2023 06:53:57 04/26/2004/26/2023 urina lysis , dipst ick Protein Negati ve Not Available [facility] [place], [address], 04/26/2023 06:53:57 04/26/2004/2604/26/2023 urina lysis , dipst ick pH 6.5 Not Available [facility] [address] [place], [address], 04/26/2023 06:53:57 04/26/2004/26/2023 urina lysis , dipst ick Blood Negati ve Not Available [facility] [address] [place], [address], 04/26/2023 06:53:57 04/26/2004/26/2023 urina lysis , dipst ick Specific [place] 1.010 Not Available [facility] [address] [place], [address], 04/26/2023 06:53:57 04/26/2004/26/2023 urina lysis , dipst ick Ketone Negati ve Not Available [facility] [place], [address], 04/26/2023 06:53:57 04/26/2004/26/2023 urina lysis , dipst ick Bilirubin Negati ve Not Available [facility] [place], [address], 04/26/2023 06:53:57 04/26/2004/26/2023 urina lysis , dipst ick Glucose Negati ve Not Available [facility] [address] [place], [address], 04/26/2023 06:53:57 04/26/2004/26/2023 urina lysis , dipst ick Appearance Clear Not Available [facility] [address] [place], [address], 04/26/2023 06:53:57 04/26/2004/26/2023 urina lysis , dipst ick Color Yellow Not Available [facility] [address] [facility] [address] [place], [place], [address], 04/26/2023 06:53:57 04/27/20 23 03/02/2023 XR, kidne y + urete r + bladd er No observ ation record ed. BARCODE Not Available 2022 08:19:03 04/27/2003/02/2023 US, renal No observ ation record ed. BARCODE [facility] (Central Scheduling) [address], [place], [address], 04/27/2023 08:19:03 Result Notes None recorded. Procedures Surgical History None recorded. Imaging Results Imaging Date Name Status LastModified by Organiz ation Details LastModified Time 03/02/2023 XR, kidney + ureter + bladder completed [facility] Information not available 04/27/2023 08:19:03 03/02/2023 US, renal completed [facility] (Central Scheduling) [address] [place], [address], 04/27/2023 08:19:03 Procedure Notes None recorded. Medical Equipment None Reported. Allergies No known drug allergies Medications Name Sig Start Date Stop Date Status Note LastModified by Organization Details LastModified Time amoxicillin 500 mg capsule 02/10 completed Not Available Not Available Not Available metformin 500 mg tablet active Not Available Not Available Not Available citalopram 40 mg tablet active Not Available Not Available Not Available triazolam 0.25 mg tablet 02/10 completed Not Available Not Available Not Available fluconazole 150 mg tablet active Not Available Not Available Not Available hydrocodone 5 mg-acetamino phen 325 mg tablet 02/10 completed Not Available Not Available Not Available ciprofloxaci n 250 mg tablet 02/10 completed Not Available Not Available Not Available sulfamethoxa zole 800 mg-trimethop rim 160 mg tablet active Not Available Not Available Not Available methenamine hippurate 1 gram tablet Take 0.5 tablets twice a day by oral route for 30 days. active Not Available Not Available No t Available amoxicillin 875 mg tablet 02/10 completed Not Available Not Available Not Available benzonatate 100 mg capsule 02/10 completed Not Available Not Available Not Available azelastine 137 mcg (0.1 %) nasal spray 02/10 completed Not Available Not Available Not Available methylpredni solone 4 mg tablets in a dose pack 02/10 completed Not Available Not Available Not Available brompheniram ine-pseudoep hedrine-DM 2 mg-30 mg-10 mg/5 mL oral syrup 02/10 completed Not Available Not Available Not Available rosuvastatin 20 mg tablet Take 1 tablet every day by oral route. active Not Available Not Available No t Available nitrofuranto in monohydrate/ macrocrystal s 100 mg capsule 02/10 completed Not Available Not Available Not Available chlorhexidin e gluconate 0.12 % mouthwash 02/10 completed Not Available Not Available Not Available Pepcid active Not Available Not Availa ble Not Available Aruna active Not Available Not Avail able Not Available levocetirizi ne 5 mg tablet 02/10 completed Not Available Not Available Not Available nebivolol 5 mg tablet active Not Available Not Available No t Available Linzess 145 mcg capsule 02/10 completed Not Available Not Available Not Available Ozempic 0.25 mg or 0.5 mg (2 mg/1.5 mL) subcutaneous pen injector 02/10 completed Not Available Not Available Not Available aspirin 81 mg capsule Take 1 capsule every day by oral route. 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 Mental Status None recorded. Family History Relationship Description Onset Age of this Age Resolved Age Notes LastModified by Organization Details LastModified Time Mother Disorder of endocrine system pt. added direct ly (02/09) [email or web address] Not available 02/09/2023 19:36:40 Father Disorder of endocrine system pt. added direct ly (02/09) [email or web address] Not available 02/09/2023 19:36:40 Maternal Grandmother Disorder of endocrine system pt. added direct ly (02/09) [email or web address] Not available 02/09/2023 19:36:40 Paternal Grandfather Disorder of endocrine system pt. added direct ly (02/09) [email or web address] Not available 02/09/2023 19:36:40 Paternal Grandfather Myocardial infarction pt. added direct ly (02/09) [email or web address] Not available 02/09/2023 19:37:23 Paternal Grandfather Heart disease pt. added direct ly (02/09) [email or web address] Not available 02/09/2023 19:38:09 Son Gastroesopha geal reflux disease pt. added direct ly (02/09) [email or web address] Not available 02/09/2023 19:36:57 Paternal Grandmother Hypercholest erolemia pt. added direct ly (02/09) [email or web address] Not available 02/09/2023 19:37:46 Paternal Uncle Hypercholest erolemia pt. added direct ly (02/09) [email or web address] Not available 02/09/2023 19:37:46 Paternal Uncle Heart disease pt. added direct ly (02/09) [email or web address] Not available 02/09/2023 19:38:09 Paternal Aunt Hypercholest erolemia pt. added direct ly (02/09) [email or web address] Not available 02/09/2023 19:37:46 Paternal Aunt Heart disease pt. added direct ly (02/09) [email or web address] Not available 02/09/2023 19:38:09 Notes:mother alive arthritis , hearing loss,gerd father alive diabetes, heart disease, high cholesterol, hearing loss,gerd, heart attack Medical History No medical history recorded. Gynecological HistoryNo gynecological history recorded. Obstetrics History GPAL:G 0 P 0 0 0 0 Past Encounters Encounter ID Performer Location Encounter Start Date Encounter Closed Date Diagnosis/Indication Diagnosis SNOMED-CT Code Diagnosis ICD10 Code Diagnosis Note [id number] Mera Smith NP, S [facility] [address],[facility] [place] [address] 02/10/2023 08:03:47 02/10/2023 09:13:02 Dysuria 54213176 R30.0 Recurrent urinary tract infection 863482666 N39.0 UA clearActiv e bowel habits, probiotics , cranberry supplement s Qday-tid, hygeine, voiding prior to and post sex (wash), and wipe front to back. Schedule Renal US and KUBStart Methenamin e 500mg bid after completes Bactrim course RTC in 8 weeks for f/u Nocturia 836812595 R35.1 Female str ess incontinence 45347507 N39.3 History of diabetes mellitus 916934400 Z86.39 [id number] Miah Rangel MD [facility] [address],[facility] [place] [address] 04/26/2023 09:01:31 04/26/2023 09:39:53 Recurrent urinary tract infection 442643854 N39.0 Dysuria 10697895 R30.0 Nocturia 420279115 R35.1 Female str ess incontinence 97051578 N39.3 History of diabetes mellitus 107873333 Z86.39 Health Concerns Section Related Observation LastModified by Organization Detai ls LastModified Time None Recorded Concern Status LastModified by Organization Details LastModified Time None Recorded Advance Directives Directive None Recorded Payers Encounter Date Sequence Insurance Name Policy Number Policy Clark Covered Member ID Clark Member ID Guarantor Name 02/10/2023 1 [place] [id number] Vane Hayes [id number] Vane Hayes 04/26/2023 1 [place] [id number] Vane Hayes [id number] Vane Hayes Notes Date Note Type Note Provider Name and Address Organization Details Recorded Time 02/10/2023 text/html 42 yowf presents to the office for evaluation of reoccurring UTIs. Her PCP is Charlene Ramirez. Location is LUT. Quality is pressure and painful urination. Severity- varies. Reports that she started experiencing reoccurring UTI's 2 years ago, has had 4-5 UTIs this year, last UTI was approx 1 weeks ago and is currently on Bactrim. UTIs have all been treated with antibiotics, sxs typically improve after 2-3 days being on antibiotic ttx. When experiences UTI has dysuria, urinary urgency/frequency, nausea, and flank pain. 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 No urine cultures have been performed. Had a CT scan last 2021 that was [address] Enamorado in the past. Currently, states f/c stream good, nocturia 1-2. Bowels has issues with constipation, reports she will have a bowel movement 1 time a week.. Reports has stress incontinence with laughting, coughing, sneezing, and beniding over. wears a pad daily, changes the pad at least 1 time per day. Patient is a diabetic, reports last hemoglobin A1c was 6.4. Reports UTIs are not related to sexual intercourse. Patient has not had a hysterectomy. Patient reports she is currently taking probiotics and cranberry extract. Mera Smith NP, S [address] [facility], [place], [address], [place] - [facility] - [place] & [place] 02/10/2023 09:24:36 04/26/2023 text/html The patient retu rns to clinic today for follow-up of recurrent urinary tract infections which have stabilized and improved on methenamine 500 mg b.i.d.. She did stop the medication briefly and did notice some return of a burning sensation and some right-sided flank pain. She has resumed the medication has done well. She tells me her 1st urinary tract infection was around age 16 or 17 years of age. She tells me for a period of time she had recurrent pyelonephritis. 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 She went through several years were she had no problem until approximately a year ago when this recurred. She has history of chronic constipation which is being improved with daily MiraLax and Metamucil. She is also on daily cranberry extract and probiotic. She has history of type 2 diabetes and tells me that her latest hemoglobin A1c was 6.2. She had a recent renal ultrasound and KUB with results listed below. She is currently doing well. 03/02/23 Renal ultrasound: Normal renal ultrasound. Fatty infiltration of the liver. KUB ,Normal. See past history from 02/10/2023:42 yowf presents to the office for evaluation of reoccurring UTIs. Her PCP is Charlene Ramirez. Location is LUT. Quality is pressure and painful urination. Severity- varies. Reports that she started experiencing reoccurring UTI's 2 years ago, has had 4-5 UTIs this year, last UTI was approx 1 weeks ago and is currently on Bactrim. UTIs have all been treated with antibiotics, sxs typically improve after 2-3 days being on antibiotic ttx. When experiences UTI has dysuria, urinary urgency/frequency, nausea, and flank pain. 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 No urine cultures have been performed. Had a CT scan last 2021 that was [address] Enamorado in the past. Currently, states f/c stream good, nocturia 1-2. Bowels has issues with constipation, reports she will have a bowel movement 1 time a week.. Reports has stress incontinence with laughting, coughing, sneezing, and beniding over. wears a pad daily, changes the pad at least 1 time per day. Patient is a diabetic, reports last hemoglobin A1c was 6.4. Reports UTIs are not related to sexual intercourse. Patient has not had a hysterectomy. Patient reports she is currently taking probiotics and cranberry extract. Miah Rangel MD [address], [place], [address], [facility] - [place] & [place] 04/26/2023 09:43:17 OBGyn Episode No OBEpisode recorded.
== END 2025-03-01 23:59 | disposition home or self-care (01) ==
LOC: RAD 14:07
PROVIDERS: PCP Family Medicine; Visit Provider Family Medicine
DX: Z12.31 Encounter for screening mammogram for malignant neoplasm of breast (principal)
CPT/HCPCS: 77063; 77067

== ENCOUNTER 2025-07-29 14:44 | Outpatient (CLI) | payer BC, SELFPAY ==
--- OUTSIDE RECORDS SUMMARY | 2025-02-16 17:30 | XMS_ITS ---
Author Organization Merged with [facility] Address [address] [place] [address] Care Team Providers Care Medical Lab Specialist Name Role Phone Silas Shaffer Primary Care Provider Migration, Provider Unavailable Unavailable Allergies Allergen (clinical drug ingredient) Drug/Non Drug Allergy documented on EMR Reaction Allergy Type Onset Date Status CLARITIN D (uncoded) Unknown Allergy Active LEVAQUIN (uncoded) make sick Allergy A ctive EPINEPHrine Unknown Drug Allergy Activ e sulfamethoxazole / trimethoprim Bactrim makes sick Drug Allergy Active acetaminophen Tylenol Unknown Drug Allergy Act evan REASON FOR VISIT [facility] Conversion Encounter Medications Medication SIG (Take, Route, Frequency, Duration) Notes Start Date End Date Status metFORMIN HCl 500 MG 1 tab(s) orally 2 times a day; Duration: 30 day(s) Active Farxiga 10 MG TAKE 1 TABLET BY MOUTH EVERY DAY; Duration: 30 Active Crestor 20 MG TAKE 1 TABLET 1 TIME EACH DAY IN THE EVENING; Duration: 90 days Active Xanax 0.5 MG 1 tab(s) orally 2-3 times a day PRN; Duration: 7 days 06/15/2021 Active Flonase Allergy Relief 50 MCG/ACT 1 spray(s) in each nostril once a day; Duration: 30 day(s) 06/15/2021 Active Aspirin 81 MG 1 tab(s) orally once a day Active NEBIVOLOL 5 MG TAKE 1 TABLET BY MOUTH ONCE DAILY; Duration: 30 *Please review for potential replacement for e-prescription and drug interaction check* Active Linzess 145 MCG 1 cap(s) orally once a day; Duration: 30 day(s) Active Claritin 10 MG 1 tab(s) orally once a day Active Nystatin 868230 UNIT/GM 1 mercy applied topically 3 times a day; Duration: 14 day(s) 10/03/2020 Active Azelastine HCl 137 MCG/SPRAY 2 spray(s) intranasally 2 times a day; Duration: 30 day(s) Active Citalopram Hydrobromide 40 MG 1 tab(s) orally once a day; Duration: 90 days Active Encounters Encounter Location Date Provider Diagnosis [facility] [address] [place] [address] 02/16/2025 Provider Migration Plan Of Treatment Medication Medication Name Sig Start Date Stop Date Notes metFORMIN HCl 500 MG 1 tab(s) orally 2 times a day; Duration: 30 day(s) NEBIVOLOL 5 MG TAKE 1 TABLET BY KATERINA TH ONCE DAILY; Duration: 30 *Please review for potential replacement for e-prescription and drug interaction check* Azelastine HCl 137 MCG/SPRAY 2 spray(s) intranasally 2 times a day; Duration: 30 day(s) Citalopram Hydrobromide 40 MG 1 tab(s) orally once a day; Duration: 90 days Progress Notes * Vane MILLER SDOB:1980 (44 yo F)Acc No.[id number]:02/16/2025 Patient: Vane GAGNON Provider: Kel appiah Migration :1980 A ge:44 Y S ex:Female Date:02/16/2025 Address:[address] [place] [address] [place], [id number] Pcp:Silas Shaffer Subjective: * Chief Complaints: * 1 . Multum To Medispan Conversion Encounter. * Medical History: * Medications: T aking Linzess 145 MCG Capsule 1 cap(s) orally once a day , Taking Aspirin 81 MG Tablet Delayed Release 1 tab(s) orally once a day , Taking Nystatin 945799 UNIT/GM Cream 1 mercy applied topically 3 times a day , Taking Claritin 10 MG Tablet 1 tab(s) orally once a day , Taking Flonase Allergy Relief 50 MCG/ACT Suspension 1 spray(s) in each nostril once a day , Taking Xanax 0.5 MG Tablet 1 tab(s) orally 2-3 times a day PRN , Taking Crestor 20 MG Tablet TAKE 1 TABLET 1 TIME EACH DAY IN THE EVENING , Taking Farxiga 10 MG Tablet TAKE 1 TABLET BY MOUTH EVERY DAY * Allergies: T ylenol, CLARITIN D, Bactrim: makes sick, LEVAQUIN: make sick, EPINEPHrine. Objective: * Vitals: Assessment: Plan: * Treatment: * * Electronic signature of Yamil spring Migration on 07/30/2025 at 10:42 AM EDT Sign off status: Pending * Provider: Kel appiah Migration Date: 02/16/2025 Generated for Toshia quick/Mariel/Keri on: 07/30/2025 10:42 AM EDT
--- OUTSIDE RECORDS SUMMARY | 2025-07-30 10:40 | XMS_ITS | Clinical Summary ---
Author Organization [facility] Address [address] [place] [address] Care Team Providers Care Part Maker Name Role Phone Johann Ramirez MD Primary Care Provider [phone] Allergies Active Allergy Reactions Criticality Noted Date Comments Acetaminophen Other (See Comments) Low 03/01/2023 Epinephrine Other (See Comments) ,Unknown - Low Severity Low 03/01/2023 Medications citalopram (CeleXA) 40 MG tablet Take 1 tablet by mouth Daily. Active nebivolol (BYSTOLIC) 5 MG tablet Take 1 tablet by mouth Daily. Active metFORMIN (GLUCOPHAGE) 500 MG tablet Take 1 tablet by mouth Daily. Active rosuvastatin (CRESTOR) 20 MG tablet Take 1 tablet by mouth Daily. Active cetirizine (zyrTEC) 10 MG tablet Take 1 tablet by mouth Daily. Active Azelastine HCl 137 MCG/SPRAY solution Daily. 01/27/2022 Active aspirin 81 MG EC tablet Take 1 tablet by mouth Daily. Active Jardiance 10 MG tablet tablet Take 1 tablet by mouth Daily. Active nitrofurantoin, macrocrystal-mo nohydrate, (Macrobid) 100 MG capsuleIndicati ons:Recurrent UTI Take 1 capsule by mouth As Needed (100 mg postcoital). 90 capsule 01/25/2025 Active Active Problems Problem Noted Date Diagnosed Date Mixed stress and urge urinary incontinence 01/25 Recurrent UTI 01/25/2025 Type 2 diabetes mellitus wit h hyperglycemia, without long-term current use of insulin 03/04/2022 Assessment & Plan (12/01/2022 10:26 AM EST): Unchanged a1c at goal We can increase ozempic when the higher doses are available. Assessment & Plan (03/04/2022 1:14 PM EDT): Diabetes is unchanged. Continue current treatment regimen. Diabetes will be reassessed in 6 months We could try to use ozempic. And stop metformin . Family History Medical History Relation Name Comments No Known Problems Brother Heart attack Father Sukhdev Sandoval Heart disease Father Sukhdev Sandoval Hypertension Mother Josefina Sandoval No Known Problems Son Relation Name Status Comments Brother Alive Father Sukhdev Sandoval Alive Mother Josefina Sandoval Alive Son Alive Social History Tobacco Use Types Packs/Day Years Used Date Smoking Tobacco: Former Cigarettes 0.3 10 Smokeless Tobacco: Never Tobacco Cessation:Counseling Given: Not Answered Alcohol Use Standard Drinks/Week Comments Yes 0 (1 standard drink = 0.6 oz pur e alcohol) 2-3 x week Comments Unknown Sex and Gender Information Value Date Recorded Sex Assigned at Not on file Legal Sex Female 12:28 PM EDT Gender Identity Not on file Sexual Orientation Not on file Last Filed Vital Signs Vital Sign Reading Time Taken Comments Blood Pressure 118/76 12/01/2022 10:10 AM EST Pulse 76 12/01/2022 10:10 AM EST Temperature - - Respiratory Rate 18 12/01/2022 10:10 AM EST Oxygen Saturation 98% 12/01/2022 10:10 AM EST Inhaled Oxygen Concentration - - Weight 90.7 kg (200 lb) 01/25/2025 11:27 AM EDT Height 160 cm (5' 3 ) 01/25/2025 11:27 AM EDT Body Mass Index 35.43 01/25/2025 11:27 AM EDT Plan of Treatment Health Maintenance Due Date Last Done Comments Annual Gynecologic Pelvic an d Breast Exam 1978 DIABETIC EYE EXAM 1988 URINE MICROALBUMIN-CREATININ E RATIO (uACR) 1988 Hepatitis B (1 of 3 - 19+ 3- dose series) 1997 Pneumococcal Vaccine 0-49 (1 of 2 - PCV) 1997 TDAP/TD VACCINES (1 - Tdap) 1997 PAP SMEAR 1999 MAMMOGRAM 2018 ANNUAL PHYSICAL 01/23/2020 HEPATITIS C SCREENING 01/23/2020 DIABETIC FOOT EXAM 03/04/2023 03/04/2022, 0 03/04/2022, 03/04/2022 HEMOGLOBIN A1C 05/31/2023 12/01/2022, 03/04/2022 COLOGUARD 2023 COLON CANCER SCREENING 5 YEA R SIGMOIDOSCOPY 2023 COLONOSCOPY 2023 COLORECTAL CANCER SCREENING 2023 CT COLONOGRAPHY 2023 FECAL OCCULT BLOOD TEST 2023 FIT Testing (1 year) 2023 COVID-19 Vaccine ( season) 2025, 12/04/2020 INFLUENZA VACCINE 08/14/2025 08/12/2023, , 08/15/2020 Procedures Procedure Name Priority Date/Time Associated Diagnosis Comments POCT GLYCOSYLATED HEMOGLOBIN (HGB A1C) Routine 12/01/2022 10:20 AM EST Type 2 diabetes mellitus with hyperglycemia, without long-term current use of insulin from Last 3 Months or Most Recently Relevant to Health Maintenance Results * POC Glycosylated Hemoglobin (Hb A1C) (12/01/2022 10:20 AM EST) Hemoglobin A1C 6.4 % [facility] Lot Number [id number] [facility] Expiration Date 08.27.24 [facility] Blood 12/01/2022 10:2 0 AM EST Juan Gil MD POINT OF CARE TEST ORD ERABLES Final Result [facility]
[address] [place] [address], from Last 3 Months or Most Recently Relevant to Health Maintenance Insurance DAINA GUTIERREZ [id number] [employer] Care Teams Part Maker Relationship Specialty Start Date End Date Johann Ramirez MD [address] [place] [address] [place] [id number] PCP - General Family Medicine 10/26/24
--- OUTSIDE RECORDS SUMMARY | 2025-07-30 10:41 | XMS_ITS | Patient Health Record ---
Author Organization [facility] D MIGUEL Address [address] [place] [address] Care Team Providers Care Loan Workout Officer Name Role Phone Silas Shaffer Primary Care [...] acetaminophen Tylenol Unknown Drug Allergy Act evan Medications Medication SIG (Take, Route, Frequency, Duration) Notes Start Date End Date Status metFORMIN HCl 500 MG 1 tab(s) orally 2 times a day; Duration: 30 day(s) Active Aspirin 81 MG 1 tab(s) orally once a day Active NEBIVOLOL 5 MG TAKE 1 TABLET BY MOUTH ONCE DAILY; Duration: 30 *Please review for potential replacement for e-prescription and drug interaction check* Active Linzess 145 MCG 1 cap(s) orally once a day; Duration: 30 day(s) Active Azelastine HCl 137 MCG/SPRAY 2 spray(s) intranasally 2 times a day; Duration: 30 day(s) Active Farxiga 10 MG TAKE 1 TABLET BY MOUTH EVERY DAY; Duration: 30 Active Citalopram Hydrobromide 40 MG 1 tab(s) orally once a day; Duration: 90 days Active Crestor 20 MG TAKE 1 TABLET 1 TIME EACH DAY IN THE EVENING; Duration: 90 days Active Xanax 0.5 MG 1 tab(s) orally 2-3 times a day PRN; Duration: 7 days 06/15/2021 Active Flonase Allergy Relief 50 MCG/ACT 1 spray(s) in each nostril once a day; Duration: 30 day(s) 06/15/2021 Active Claritin 10 MG 1 tab(s) orally once a day Active Nystatin 886875 UNIT/GM 1 mercy applied topically 3 times a day; Duration: 14 day(s) 10/03/2020 Active Immunizations Vaccine Route Administration Date Status Comme nts Flublok IM Intramuscular 08/15/2020 Administered Problems Problem Type SNOMED Code ICD Code Onset Dates Problem Status W/U Status Risk Notes Problem Type 2 diabetes mellitus with other specified complication (E11.69) Active confirmed Problem Hyperlipidemia (29520222) Hyperlipidemia, unspecified (E78.5) Active confirmed Problem Vasomotor rhinitis (2745421) Vasomotor rhinitis (J30.0) Active confirmed Problem Seasonal allergic rhinitis (442818161) Other seasonal allergic rhinitis (J30.2) Active confirmed Problem Chronic maxillary sinusitis (80438364) Chronic maxillary sinusitis (J32.0) Active confirmed Problem Essential hypertension (84231130) Essential hypertension (I10) Active confirmed Problem Mitral valve prolapse (903112394) Mitral valve prolapse (I34.1) Active confirmed Problem Type II diabetes mellitus without complication (619586515) Diabetes mellitus type II, non insulin dependent (E11.9) Active confirmed Problem Iron deficiency anemia due to chronic blood loss (363376220) Iron deficiency anemia due to chronic blood loss (D50.0) Active confirmed Problem Obese class II (194366864020901) BMI 35.0-35.9,adult (Z68.35) Active confirmed Problem Menopausal symptom (65889032) Menopausal symptom (N95.1) Active confirmed Problem Chronic idiopathic constipation (16470717) Chronic idiopathic constipation (K59.04) Active confirmed Problem Acetonuria (63094220) Urine ketones (R82.4) Active confirmed Problem Seasonal allergic rhinitis (381102635) Seasonal allergic rhinitis, unspecified trigger (J30.2) Active confirmed Problem Disease caused by Severe acute respiratory syndrome coronavirus 2 (disorder) (109930572) 2019 novel coronavirus disease (COVID-19) (U07.1) Active confirmed Problem Anxiety disorder (147420934) Anxiety with limited-symptom attacks (F41.8) Active confirmed Encounters Encounter Location Date Provider Diagnosis [facility] PED MIGU[facility] [address] [place] [address] 02/16/2025 Provider Migration Plan Of Treatment Pending Test Test Name Order Date N-Urine Culture and Sensitivity 11/19/19 12 X ray : Spines, Lumbosacral 04/26/2013 Urinalysis 03/07/2017 Urinalysis 10/03/2020 N-Iron 06/14/2012 CT Scan : Sinuses 10/04/2012 X ray : Spines, Cervical 04/26/2013 IVP 09/22/2011 , Rapid Urine 09/23/2011 Holter Monitor, 24 Hour 04/24/2012 Dietary Consult 03/08/2017 H-H.PYLORI ANTIGEN 12/17/2014 H-PERIPHERAL SMEAR REVIEW 12/16/2014 C-CBC 03/07/2017 C-CMP 03/07/2017 C-TSH 05/23/2014 C-FREE T4 05/23/2014 C-URINE CULTURE 09/10/2014 C-HGBA1C 03/07/2017 Urine Culture, Routine 03/07/2017 Insurance Providers Payer Name Payer Address Payer Phone Subscriber Number Group Number Insured Name Patient Relationship to Insured Coverage Start Date Coverage End Date [facility] [id number] [place] [address] [id number] Vane Hayes Self - patient is the insured Medications Administered Medication Instructions Date of Administration Dosage Notes allergy 01/13/2017 Mold; LA 0.3ml Dog,G,t; RA 0.3ml Cat, dog, mite, weed; RA 0.3ml allergy 01/20/2017 cat/dog/mite/weed 0.4ml RA mold 0.4ml LA dog/g/t 0.4ml RA allergy 01/27/2017 0.5 mL allergy 02/10/2017 C,D,M,W 0.1ml LA D,G,T 0.1ml LA Mold 0.1ml RA allergy 02/17/2017 Mold 0.2ml LA Dog, grass, tree 0.2ml RA Cat, dog, mite, weed 0.2ml RA allergy 02/25/2017 C,D,M,W 0.3ml LA D,G,T 0.3ml LA Mold 0.3ml RA allergy 03/25/2017 0.35 mL D,G,T LA C,D,M,W LA Mold RA allergy 04/18/2017 C,D,M,W 0.4ml LA Mold 0.4ml RA D,G,T 0.4ml LA allergy 04/22/2017 D,G,T 0.5ml RA Mold 0.5ml LA C,D,M,W 0.5ml RA Medical (General) History Medical History History ICD Code mitral valve prolapse svt uncomplicated Traumatic nasal fracture Iron deficiency anemia Recurrent sinusitis Anxiety with depression Environmental allergies Obesity Diabetes, type 2, dx 2016 Pneumonia - 2016 coronavirus 19 infection April 2020 Normal mammogram 05/2020 Colonoscopy at age 38 with polyps.. need s 5 year repeat Surgical History Surgery Date(Month/Year) Traumatic nasal reconstruction Hospitalization History Reason Date(Month/Year) Pyelonephritis
--- OUTSIDE RECORDS SUMMARY | 2025-07-30 10:43 | XMS_ITS | Clinical Summary ---
Author Organization [facility] Address [address] [place] [address] Care Team Providers Care Full Stack Net Developer Name Role Phone Silas Shaffer MD Primary Care Provider [phone] Family History Medical History Relation Name Comments Coronary artery disease Other Relation Name Status Comments Other Social History Tobacco Use Types Packs/Day Years Used Date Smoking Tobacco: Former Comments Unknown Sex and Gender Information Value Date Recorded Sex Assigned at Not on file Legal Sex Female 6:02 PM EDT Gender Identity Not on file Sexual Orientation Not on file Last Filed Vital Signs Vital Sign Reading Time Taken Comments Blood Pressure - - Pulse - - Temperature - - Respiratory Rate - - Oxygen Saturation - - Inhaled Oxygen Concentration - - Weight 93.9 kg (207 lb 0.2 oz) 06/30/2016 8:11 A M EDT Height 160 cm (5' 3 ) 06/30/2016 8:03 AM EDT Body Mass Index 36.67 06/30/2016 8:03 AM EDT Plan of Treatment Not on file Care Teams Full Stack Net Developer Relationship Specialty Start Date End Date Silas Shaffer MD [address] [place] [address] PCP - General 03/27/21
--- OUTSIDE RECORDS SUMMARY | 2025-07-30 10:43 | XMS_ITS | Encounter Summary ---
Author Organization [facility] ([place], [place], [place], [place]) Address [address] [place] [address] Care Team Providers Care Library Media Assistant Name Role Phone Unavailable Primary Care Provider Unavailabl e Reason for Referral * Ultrasound (Routine) - Closed Specialty Diagnoses / Procedures Referred By Contac t Referred To Contact Diagnoses Urinary tract infection without hematuria, site unspecified Procedures US renal complete bilateral Miah Rangel MD [address] [address] Phone: tel: fax: Referral ID Status Reason Start Date Expiration Date Visits Re quested Visits Authorized [id number] Closed 02/10/2023 08/09/2023 1 1 Encounter Details Date Type Department Care Team (Late st Contact Info) Description 02/10/2023 Outside Orders [facility] Scheduling [address] [place] [address] Miah Rangel MD [address] [place] [address] [address] Urinary tract infection without hematuria, site unspecified (Primary Dx) Social History Tobacco Use Types Packs/Day Years Used Date Smoking Tobacco: Never Assessed Comments Unknown Sex and Gender Information Value Date Recorded Sex Assigned at Not on file Legal Sex Female 3:30 PM CDT Gender Identity Not on file Sexual Orientation Not on file documented as of this encounter Plan of Treatment Not on file documented as of this encounter Results * US renal complete bilateral (03/02/2023 8:37 AM EDT) Anatomical Region Laterality Modality Abdomen, Kidney Ultrasound 03/02/2023 8:53 AM EDT Impressions 03/02/2023 8:57 AM EDT Normal renal ultrasound. Fatty infiltration of the liver incidentally noted. Films reviewed, interpreted, and dictated by Dr. Degroot. Transcribed by June Montiel PA-C. Narrative 03/02/2023 8:57 AM EDT RENAL ULTRASOUND HISTORY: Recurrent urinary tract infection. PROCEDURE: Ultrasound images of the kidneys were obtained. FINDINGS: Limited images of the liver parenchyma demonstrate fatty infiltration. The right kidney measures 14 cm in length . It is normal echogenicity. There is no hydronephrosis. The left kidney measures 11 cm in length . It is normal echogenicity. There is no hydronephrosis. Procedure Note Yahir Degroot MD - 03/02/2023 RENAL ULTRASOUND HISTORY: Recurrent urinary tract infection. PROCEDURE: Ultrasound images of the kidneys were obtained. FINDINGS: Limited images of the liver parenchyma demonstrate fatty infiltration. The right kidney measures 14 cm in length . It is normal echogenicity. There is no hydronephrosis. The left kidney measures 11 cm in length . It is normal echogenicity. There is no hydronephrosis. IMPRESSION: Normal renal ultrasound. Fatty infiltration of the liver incidentally noted. Films reviewed, interpreted, and dictated by Dr. Degroot. Transcribed by June Montiel PA-C. us Miah Rangel MD [facility] [place] US ORDERABLES Final Result documented in this encounter Visit Diagnoses Diagnosis Urinary tract infection without hematuria, site unspecified- Primary Urinary tract infection without hematuria, site unspecified documented in this encounter
--- OUTSIDE RECORDS SUMMARY | 2025-07-30 10:43 | XMS_ITS | Clinical Summary ---
Author Organization [facility] Address [address] [place] [address] Phone Care Team Providers Care Respiratory Therapy Technician Name Role Phone Unavailable Primary Care Provider Unavailabl e Allergies No known active allergies Medications * This document contains information received from the source organization and may not represent a complete record from that organization. citalopram (CELEXA) 40 mg Oral TabletIndication s:Generalized anxiety disorder Take one tablet by mouth every day 30 Tab 3 01/13/2017 Active Social History Tobacco Use Types Packs/Day Years Used Date Smoking Tobacco: Never Smokeless Tobacco: Never Alcohol Use Standard Drinks/Week Comments No 0 (1 standard drink = 0.6 oz pur e alcohol) Sexually Active Control Partners Comments Yes Comments Unknown Sex and Gender Information Value Date Recorded Sex Assigned at Not on file Legal Sex Female 9:18 AM EST Gender Identity Not on file Sexual Orientation Not on file Obstetrics History Last Filed Vital Signs Vital Sign Reading Time Taken Comments Blood Pressure - - Pulse - - Temperature - - Respiratory Rate - - Oxygen Saturation - - Inhaled Oxygen Concentration - - Weight 97.5 kg (215 lb) 01/13/2017 3:59 PM EST Height 160 cm (5' 3 ) 01/13/2017 3:59 PM EST Body Mass Index 38.09 01/13/2017 3:59 PM EST Plan of Treatment Health Maintenance Due Date Last Done Comments Annual Wellness Exam 1981 DTaP/TDaP/Td (1 - Tdap) 1997 Hepatitis B Vaccine (1 of 3 - 19+ 3-dose series) 1997 Cervical Cancer Screening 1999 Pap Smear 1999 HPV/Pap Cotest 2008 Breast Cancer Screening 2018 Cologuard 2023 Colon Cancer Screening 2023 Colonoscopy 2023 FIT 2023 Sigmoidoscopy 2023 Virtual Colonography 2023 COVID-19 Vaccine (1 - 2023-2 5 season) 2025 Influenza Vaccine (#1) 2025 Meningococcal B Vaccine Aged Out No l onger eligible based on patient's age to complete this topic Pneumococcal Vaccine 0-49 Aged Out No longer eligible based on patient's age to complete this topic Insurance [employer]ATHAN PPO
--- OUTSIDE RECORDS SUMMARY | 2025-07-30 10:43 | XMS_ITS | Encounter Summary ---
Author Organization [facility] ([place], [place], [place], [place]) Address [address] [place] [address] Care Team Providers Care Facing Grinder Name Role Phone Unavailable Primary Care Provider Unavailabl e Reason for Referral * Diagnostic X-Ray (Routine) - Closed Specialty Diagnoses / Procedures Referred By Alma t Referred To Contact Diagnoses Urinary tract infection without hematuria, site unspecified Procedures X-ray abdomen KUB 1 view Mera Smith APRN [address] [place] [address] Phone: tel: fax: Referral ID Status Reason Start Date Expiration Date Visits Re quested Visits Authorized [id number] Closed 03/02/2023 08/29/2023 1 1 Encounter Details Date Type Department Care Team (Late st Contact Info) Description 03/02/2023 Outside Orders [facility] Admitting [address] [place] [phone] Mera Smith APRN [address] [place] [address] Urinary tract infection without hematuria, site unspecified [...] documented as of this encounter Results * X-ray abdomen KUB 1 view (03/02/2023 8:30 AM EDT) Anatomical Region Laterality Modality Abdomen X-Ray 03/02/2023 9:56 AM EDT Impressions 03/02/2023 9:57 AM EDT Nonspecific bowel gas pattern. Images reviewed, interpreted, and dictated by Dr. Rivas Degroot. Transcribed by Feliciano Donaldson (Daniel). Narrative 03/02/2023 9:57 AM EDT KUB HISTORY: Chronic UTIs . COMPARISON:None. FINDINGS: A single view of the abdomen with a coned-down of the pelvis demonstrates a nonspecific bowel gas pattern. No definite abnormal calcifications are identified . An IUD is noted in the pelvis. Procedure Note Yahir Degroot MD - 03/02/2023 KUB HISTORY: Chronic UTIs . COMPARISON:None. FINDINGS: A single view of the abdomen with a coned-down of the pelvis demonstrates a nonspecific bowel gas pattern. No definite abnormal calcifications are identified . An IUD is noted in the pelvis. IMPRESSION: Nonspecific bowel gas pattern. Images reviewed, interpreted, and dictated by Dr. Rivas Degroot. Transcribed by Feliciano Donaldson (Daniel). Mera Smith APRN IMG DIAGNOSTIC IMAGING ORD ERABLES Final Result documented in this encounter Visit Diagnoses Diagnosis Urinary tract infection without hematuria, site unspecified- Primary Urinary tract infection without hematuria, site unspecified documented in this encounter
== END 2025-07-29 23:59 | disposition home or self-care (01) ==
LOC: LAB.DROPOF 07-30 10:18
PROVIDERS: PCP Family Medicine; Visit Provider Family Medicine
DX: N39.0 Urinary tract infection, site not specified (principal)
CPT/HCPCS: 87086